=== PATIENT | male | born 1965 | race Caucasian/White ===

== ENCOUNTER 2021-09-01 10:27 | Emergency (ER) | payer OTHER ==
[2021-09-01 10:47] VITALS: TEMP 98.1; BMI 30.7
[2021-09-01] MEDS ORDERED: morphine CARPU-JECT 4 MG/1 ML DISP.SYRIN IVPUSH ONE ×2 (11:04→13:27)
[2021-09-01] MEDS ORDERED: morphine SULFATE 4 MG/ML VIAL ONE ×2 (11:09→13:38)
[2021-09-01] MEDS ORDERED: SODIUM CHLORIDE 500 ML IV STA (11:11)
[2021-09-01 11:14] LABS: INR 0.94 (0.83-1.09); PROTHROMBIN TIME (PATIENT) 11.4 SEC (9.7-13.0)
[2021-09-01 11:17] LABS: ACTIVATED PTT 31.2 SECONDS (25.2-36.5)
[2021-09-01 11:19] LABS: BASO % 0.5 % (0-2.0); EOS % 2.6 % (0-4.5); HEMATOCRIT 42.9 % (35.4-49); HEMOGLOBIN 14.2 GM/dL (11.7-16.9); LYMPH % 30.9 % (8-40); MCHC 33.1 g/dl (32.0-35.9); MEAN CELL VOLUME 84.5 fl (80-96); MEAN PLT VOLUME 8.4 fl (7.5-11.1); MONO % 10.4 % (3.8-10.2); NEUT % 55.6 % (42.8-82.8); PLATELET COUNT 272 10^3/uL (134-434); RBC 5.07 M/mm3 (4.00-5.60); RDW 14.9 % (11.9-15.9); WHITE BLOOD COUNT 7.9 K/mm3 (4.0-10.0)
[2021-09-01 11:26] LABS: CHLORIDE 104 mmol/L (98-107); SODIUM 135 mmol/L (136-145)
[2021-09-01 11:28] LABS: CALCIUM 8.8 mg/dL (8.5-10.1)
[2021-09-01 11:29] LABS: ALBUMIN 3.5 g/dl (3.4-5.0); BLOOD UREA NITROGEN 10.4 mg/dL (7-18); CO2 29 mmol/L (21-32)
[2021-09-01 11:32] LABS: GLUCOSE,RANDOM 86 mg/dL (74-106); SGOT/AST 69 U/L (15-37)
[2021-09-01 11:33] LABS: BILIRUBIN,TOTAL 0.5 mg/dL (0.2-1)
[2021-09-01 11:34] LABS: TOT PROT 7.6 g/dl (6.4-8.2)
[2021-09-01 11:35] LABS: ALK PHOS 191 U/L (45-117)
[2021-09-01 11:36] LABS: EPI CELLS 2 /uL (0-25.1); HYALINE CASTS 1 /uL (0-3.1); URINE APPEARANCE CLEAR; URINE BACTERIA 7 /uL (0-1359); URINE BILIRUBIN NEGATIVE (NEGATIVE); URINE COLOR YELLOW; URINE GLUCOSE (UA) NEGATIVE (NEGATIVE); URINE KETONE NEGATIVE (NEGATIVE); URINE LEUK ESTERASE TRACE (NEGATIVE); URINE NITRITE NEGATIVE (NEGATIVE); URINE PROTEIN NEGATIVE (NEGATIVE); URINE RBC 6 /uL (0-23.9); URINE WBC 2 /uL (0-25.8)
[2021-09-01 12:17] LABS: ANION GAP 2 MMOL/L (8-16); SGPT/ALT 25 U/L (13-61)
[2021-09-01 14:14] LABS: CALCIUM 8.4 mg/dL (8.5-10.1)
[2021-09-01 14:15] LABS: ALBUMIN 3.5 g/dl (3.4-5.0)
[2021-09-01 14:18] LABS: CREATININE 0.9 mg/dL (0.55-1.3)
[2021-09-01 14:19] LABS: BILIRUBIN,TOTAL 0.5 mg/dL (0.2-1)
[2021-09-01 14:26] VITALS: BP 136/91; PULSE 81
== END 2021-09-01 16:12 | disposition home or self-care (01) ==
LOC: JER 10:27
PROC: 3E033NZ Introduction of Analgesics, Hypnotics, Sedatives into Peripheral Vein, Percutaneous Approach (ICD-10-PCS; principal; 2021-09-01)
PROC: 3E033NZ Introduction of Analgesics, Hypnotics, Sedatives into Peripheral Vein, Percutaneous Approach (ICD-10-PCS; 2021-09-01)
PROC: 3E0337Z Introduction of Electrolytic and Water Balance Substance into Peripheral Vein, Percutaneous Approach (ICD-10-PCS; 2021-09-01)
DX: R10.11 Right upper quadrant pain (principal)
CPT/HCPCS: 36415; 71045-TC-FY; 74177-TC; 76705-TC; 80053; 81003; 82550; 82553; 84484; 85025; 85610; 85730; 93005; 93010; 99285-25; C9803; Q9967; U0003; U0005

== ENCOUNTER 2022-04-18 19:49 | Observation (INO) | payer OTHER ==
[2022-04-18] MEDS ORDERED: methylPREDNISolone NA SUCC 125 MG/2 ML VIAL IVPB ONE (20:18)
[2022-04-18] MEDS ORDERED: ALBUTEROL SO4 2.5/IPRATROPIUM 0.5 INH SOL 3 ML VIAL.NEB. NEB ONE (20:26)
[2022-04-18] MEDS ORDERED: methylPREDNISolone NA SUCC 125 MG/2 ML VIAL ONE (20:27)
[2022-04-18] MEDS: ALBUTEROL SO4 2.5/IPRATROPIUM 0.5 INH SOL 3 ML VIAL.NEB. NEB SCH ×2 (20:33→20:44)
[2022-04-18 21:20] LABS: EOS % 2.6 % (0-4.5); HEMOGLOBIN 13.3 GM/dL (11.7-16.9); LYMPH % 29.4 % (8-40); MCH 29.8 pg (25.7-33.7); MCHC 34.1 g/dl (32.0-35.9); MEAN CELL VOLUME 87.5 fl (80-96); MEAN PLT VOLUME 8.9 fl (7.5-11.1); MONO % 8.9 % (3.8-10.2); NEUT % 58.1 % (42.8-82.8); PLATELET COUNT 253 10^3/uL (134-434); RBC 4.46 M/mm3 (4.00-5.60); RDW 14.8 % (11.9-15.9); VENOUS BASE EXCESS 0.6 mmol/L (-2-2); VENOUS O2 SATURATION 82.5 % (70-80); VENOUS PCO2 45.8 mmHg (38-52); VENOUS PH 7.376 (7.310-7.410); WHITE BLOOD COUNT 8.5 K/mm3 (4.0-10.0)
[2022-04-18 21:24] LABS: INR 0.91 (0.83-1.09); PROTHROMBIN TIME (PATIENT) 10.4 SEC (9.7-13.0)
[2022-04-18 21:27] LABS: ACTIVATED PTT 33.1 SECONDS (25.2-36.5)
[2022-04-18] MEDS ORDERED: MAG HYDROX/AL HYDROX/SIMETH -MYLANTA- ORAL SUSPENSION PO ONE (21:28)
[2022-04-18] MEDS ORDERED: ACETAMINOPHEN 1000 MG/100 ML BAG IVPB ONE (21:28)
[2022-04-18] MEDS ORDERED: FAMOTIDINE 20 MG/50 ML IVPB 20 MG/50 ML MG IVPB ONE ×2 (21:28→21:32)
[2022-04-18] MEDS ORDERED: ACETAMINOPHEN INJECTION 100 ML IVPB ONE (21:31)
[2022-04-18] MEDS ORDERED: MAG HYDROX/AL HYDROX/SIMETH 30 ML UNIT-DOSE CUP ONE (21:32)
[2022-04-18 21:44] LABS: CALCIUM 8.9 mg/dL (8.5-10.1)
[2022-04-18 21:45] LABS: ALBUMIN 3.8 g/dl (3.4-5.0); BLOOD UREA NITROGEN 16.9 mg/dL (7-18)
[2022-04-18 21:49] LABS: BILIRUBIN,TOTAL 0.2 mg/dL (0.2-1); TOT PROT 7.2 g/dl (6.4-8.2)
[2022-04-18 21:53] LABS: N-TERMINAL BNP 18.6 pg/ml (5-125)
[2022-04-18] MEDS ORDERED: CEFTRIAXONE 1,000 MG in DEXTROSE 5%-WATER - 50 ML IVPB ONE (21:54)
[2022-04-18] MEDS ORDERED: CEFTRIAXONE 1 GM/50 ML BAG ONE (22:08)
[2022-04-18] MEDS ORDERED: ALBUTEROL SO4 0.5 % INH SOLN 2.5 MG/0.5 ML VIAL.NEB. NEB ONE ×2 (23:20→23:36)
[2022-04-19] MEDS ORDERED: ZOLPIDEM TARTRATE 5 MG TABLET PO ONE (02:05)
[2022-04-19] MEDS ORDERED: ALBUTEROL SO4 HFA INHALER IH PRN (02:21)
[2022-04-19 02:57] VITALS: BMI 33.0
[2022-04-19] MEDS ORDERED: LORazepam 1 MG TABLET PO ONE ×2 (03:43→23:37)
[2022-04-19] MEDS: INSULIN SLIDING SCALE (NOVOLOG) 1 VIAL SQ SCH ×4 (06:55→21:54)
[2022-04-19] MEDS ORDERED: ALBUTEROL SO4 2.5/IPRATROPIUM 0.5 INH SOL 3 ML VIAL.NEB. NEB SCH (08:00)
[2022-04-19] MEDS: PANTOPRAZOLE 40 MG TABLET PO SCH (09:34)
[2022-04-19] MEDS: SENNOSIDES 8.6MG TABLET (FP) PO SCH ×2 (09:34→21:54)
[2022-04-19] MEDS: DOCUSATE SODIUM 100 MG CAPSULE (FP) PO SCH ×2 (09:34→21:54)
[2022-04-19] MEDS: POLYETHYLENE GLYCOL (HEALTHYLAX) 3350 17 GM PACKET PO SCH (09:34)
[2022-04-19] MEDS: ENOXAPARIN NA (PORCINE) 40 MG/0.4 ML DISP.SYRIN SQ SCH (09:35)
[2022-04-19] MEDS ORDERED: predniSONE 20 MG TABLET (UD) PO SCH (10:00)
[2022-04-19] MEDS ORDERED: ALPRAZolam 0.25 MG TABLET PO ONE (10:15)
[2022-04-19] MEDS: TIOTROPIUM BROMIDE 2.5 MCG (SPIRIVA) RESPIMAT INHALER IH SCH (11:30)
[2022-04-19] MEDS: BUDESONIDE/FORMETEROL FUMARATE 80/4.5 mcg INHALER IH SCH ×2 (12:56→21:56)
[2022-04-19] MEDS: LEVALBUTEROL HCL 0.63 MG/3 ML VIAL.NEB. IH SCH ×2 (15:27→21:30)
[2022-04-19] MEDS: methylPREDNISolone NA SUCC 40 MG/1 ML VIAL IVPUSH SCH (17:40)
[2022-04-20] MEDS: methylPREDNISolone NA SUCC 40 MG/1 ML VIAL IVPUSH SCH ×2 (02:21→10:10)
[2022-04-20] MEDS: INSULIN SLIDING SCALE (NOVOLOG) 1 VIAL SQ SCH ×4 (06:37→21:27)
[2022-04-20] MEDS ORDERED: INSULIN (NOVOLOG) ASPART 100 UNITS/ML 10ML VIAL ONE (06:45)
[2022-04-20] MEDS: LEVALBUTEROL HCL 0.63 MG/3 ML VIAL.NEB. IH SCH ×3 (08:50→21:07)
[2022-04-20] MEDS: POLYETHYLENE GLYCOL (HEALTHYLAX) 3350 17 GM PACKET PO SCH (10:09)
[2022-04-20] MEDS: ENOXAPARIN NA (PORCINE) 40 MG/0.4 ML DISP.SYRIN SQ SCH (10:09)
[2022-04-20] MEDS: PANTOPRAZOLE 40 MG TABLET PO SCH (10:09)
[2022-04-20] MEDS: SENNOSIDES 8.6MG TABLET (FP) PO SCH (10:09)
[2022-04-20] MEDS: DOCUSATE SODIUM 100 MG CAPSULE (FP) PO SCH (10:09)
[2022-04-20] MEDS: BUDESONIDE/FORMETEROL FUMARATE 80/4.5 mcg INHALER IH SCH ×2 (10:10→21:30)
[2022-04-20] MEDS: TIOTROPIUM BROMIDE 2.5 MCG (SPIRIVA) RESPIMAT INHALER IH SCH (10:10)
[2022-04-20] MEDS ORDERED: ZOLPIDEM TARTRATE 5 MG TABLET PO PRN (13:31)
[2022-04-20] MEDS ORDERED: LORazepam 1 MG TABLET PO ONE (14:45)
[2022-04-20] MEDS: LOSARTAN POTASSIUM 25 MG TABLET PO SCH (14:55)
[2022-04-20] MEDS ORDERED: MELATONIN 1 MG TABLET PO SCH (22:00)
[2022-04-20] MEDS ORDERED: ATORVASTATIN CA 40 MG TABLET (FP) PO SCH (22:00)
[2022-04-21] MEDS: INSULIN SLIDING SCALE (NOVOLOG) 1 VIAL SQ SCH ×2 (06:01→11:32)
[2022-04-21] MEDS: LEVALBUTEROL HCL 0.63 MG/3 ML VIAL.NEB. IH SCH (07:20)
[2022-04-21] MEDS: POLYETHYLENE GLYCOL (HEALTHYLAX) 3350 17 GM PACKET PO SCH (09:33)
[2022-04-21] MEDS: TIOTROPIUM BROMIDE 2.5 MCG (SPIRIVA) RESPIMAT INHALER IH SCH (09:33)
[2022-04-21] MEDS: LOSARTAN POTASSIUM 25 MG TABLET PO SCH (09:33)
[2022-04-21] MEDS: BUDESONIDE/FORMETEROL FUMARATE 80/4.5 mcg INHALER IH SCH (09:34)
[2022-04-21] MEDS: PANTOPRAZOLE 40 MG TABLET PO SCH (09:34)
[2022-04-21] MEDS: ENOXAPARIN NA (PORCINE) 40 MG/0.4 ML DISP.SYRIN SQ SCH (09:36)
[2022-04-21] MEDS ORDERED: methylPREDNISolone NA SUCC 40 MG/1 ML VIAL IVPUSH SCH (10:00)
[2022-04-21 12:18] VITALS: BP 145/81; PULSE 113; TEMP 98.4
[2022-04-21 13:05] LABS: BASO % 0.4 % (0-2.0); EOS % 0.3 % (0-4.5); HEMATOCRIT 38.3 % (35.4-49); HEMOGLOBIN 13.2 GM/dL (11.7-16.9); LYMPH % 19.4 % (8-40); MCHC 34.4 g/dl (32.0-35.9); MEAN CELL VOLUME 87.1 fl (80-96); MEAN PLT VOLUME 9.2 fl (7.5-11.1); MONO % 7.5 % (3.8-10.2); NEUT % 72.4 % (42.8-82.8); PLATELET COUNT 256 10^3/uL (134-434); RDW 14.9 % (11.9-15.9); WHITE BLOOD COUNT 9.5 K/mm3 (4.0-10.0)
[2022-04-21 13:36] LABS: ALBUMIN 3.8 g/dl (3.4-5.0); MAGNESIUM 2.3 mg/dL (1.8-2.4)
[2022-04-21 13:37] LABS: CALCIUM 9.1 mg/dL (8.5-10.1)
[2022-04-21 13:38] LABS: BLOOD UREA NITROGEN 26.6 mg/dL (7-18); CREATININE 0.9 mg/dL (0.55-1.3)
[2022-04-21 13:41] LABS: PHOSPHOROUS 4.2 mg/dL (2.5-4.9)
[2022-04-21 13:42] LABS: BILIRUBIN,TOTAL 0.4 mg/dL (0.2-1)
== END 2022-04-21 14:44 | disposition home or self-care (01) ==
LOC: JER 19:49 → JERBED 04-19 00:43 → UNDOADMOB 04-19 00:43 → INTOOBSV 04-19 00:43 → J8W 04-19 02:27 → JERBED 04-19 02:27 → J8W 04-19 10:19 → JERBED 04-19 10:19
PROVIDERS: ADMIT Hospitalist; ATTEND Internal Medicine
PROC: 3E03329 Introduction of Other Anti-infective into Peripheral Vein, Percutaneous Approach (ICD-10-PCS; principal; 2022-04-19)
PROC: 3E033GC Introduction of Other Therapeutic Substance into Peripheral Vein, Percutaneous Approach (ICD-10-PCS; 2022-04-19)
PROC: 3E013GC Introduction of Other Therapeutic Substance into Subcutaneous Tissue, Percutaneous Approach (ICD-10-PCS; 2022-04-19)
PROC: 3E033NZ Introduction of Analgesics, Hypnotics, Sedatives into Peripheral Vein, Percutaneous Approach (ICD-10-PCS; 2022-04-19)
PROC: 3E0F7SF Introduction of Other Gas into Respiratory Tract, Via Natural or Artificial Opening (ICD-10-PCS; 2022-04-19)
DX: J44.1 Chronic obstructive pulmonary disease with (acute) exacerbation (principal); R10.32 Left lower quadrant pain; R06.03 Acute respiratory distress; R00.0 Tachycardia, unspecified; I10 Essential (primary) hypertension; E11.9 Type 2 diabetes mellitus without complications; F10.21 Alcohol dependence, in remission; F41.9 Anxiety disorder, unspecified; Z87.891 Personal history of nicotine dependence; Z91.51 Personal history of suicidal behavior; Z86.73 Personal history of transient ischemic attack (TIA), and cerebral infarction without residual deficits; Z86.79 Personal history of other diseases of the circulatory system
CPT/HCPCS: 0241U-QW; 36415; 71045-TC-FY; 71250-TC; 74176-TC; 80053; 80061; 82803; 82962; 83036; 83690; 83735; 83880; 84100; 84484; 85025; 85610; 85730; 93005; 93010; 93306-TC; 94640; 96367; 96372; 96375; 96376; 99285-25; G0378

== ENCOUNTER 2022-05-20 08:55 | Inpatient (IN) | payer OTHER ==
[2022-05-20] MEDS ORDERED: ALBUTEROL SO4 2.5/IPRATROPIUM 0.5 INH SOL 3 ML VIAL.NEB. NEB ONE ×3 (09:36→15:35)
[2022-05-20] MEDS ORDERED: methylPREDNISolone NA SUCC 125 MG/2 ML VIAL IVPUSH ONE (09:40)
[2022-05-20] MEDS ORDERED: LACTATED RINGERS SOLUTION 1000 ML INFUS.BAG IV ONE (09:47)
[2022-05-20 09:49] LABS: VENOUS BASE EXCESS 0.5 mmol/L (-2-2); VENOUS O2 SATURATION 88.2 % (70-80); VENOUS PCO2 42.6 mmHg (38-52); VENOUS PH 7.396 (7.310-7.410)
[2022-05-20 09:54] LABS: BASO % 0.1 % (0-2.0); HEMATOCRIT 38.5 % (35.4-49); HEMOGLOBIN 12.8 GM/dL (11.7-16.9); LYMPH % 6.7 % (8-40); MCH 29.2 pg (25.7-33.7); MCHC 33.2 g/dl (32.0-35.9); MEAN CELL VOLUME 87.9 fl (80-96); MEAN PLT VOLUME 8.6 fl (7.5-11.1); MONO % 4.5 % (3.8-10.2); NEUT % 88.7 % (42.8-82.8); PLATELET COUNT 296 10^3/uL (134-434); RBC 4.38 M/mm3 (4.00-5.60); RDW 14.9 % (11.9-15.9); WHITE BLOOD COUNT 15.6 K/mm3 (4.0-10.0)
[2022-05-20 09:57] LABS: PH,URINE 5.5 (5.0-8.0); URINE APPEARANCE CLEAR; URINE BILIRUBIN NEGATIVE (NEGATIVE); URINE COLOR YELLOW; URINE GLUCOSE (UA) 3+ (NEGATIVE); URINE KETONE NEGATIVE (NEGATIVE); URINE LEUK ESTERASE NEGATIVE (NEGATIVE); URINE NITRITE NEGATIVE (NEGATIVE); URINE PROTEIN NEGATIVE (NEGATIVE); URINE UROBILINOGEN 0.2 mg/dL (0.2-1.0)
[2022-05-20 10:02] LABS: INR 0.9 (0.83-1.09); PROTHROMBIN TIME (PATIENT) 10.3 SEC (9.7-13.0)
[2022-05-20 10:04] LABS: ACTIVATED PTT 27.2 SECONDS (25.2-36.5)
[2022-05-20] MEDS ORDERED: AMOX TR/POT CLAV 875MG/125MG TABLETS (FP) PO ONE (10:05)
[2022-05-20] MEDS ORDERED: AZITHROMYCIN IVPB 500 MG in DEXTROSE 5%-WATER - 250 ML IVPB ONE (10:06)
[2022-05-20 10:21] LABS: CHLORIDE 100 mmol/L (98-107); SODIUM 138 mmol/L (136-145)
[2022-05-20 10:23] LABS: CALCIUM 9.9 mg/dL (8.5-10.1)
[2022-05-20 10:24] LABS: ALBUMIN 4.1 g/dl (3.4-5.0); ANION GAP 10 MMOL/L (8-16); BLOOD UREA NITROGEN 19.8 mg/dL (7-18); CO2 28 mmol/L (21-32); LIPASE 89 U/L (73-393); MAGNESIUM 2.2 mg/dL (1.8-2.4)
[2022-05-20] MEDS ORDERED: ACETAMINOPHEN 1000 MG/100 ML BAG IVPB ONE (10:24)
[2022-05-20 10:27] LABS: CREATININE 1.3 mg/dL (0.55-1.3); SGOT/AST 13 U/L (15-37); SGPT/ALT 43 U/L (13-61)
[2022-05-20 10:28] LABS: BILIRUBIN,TOTAL 0.2 mg/dL (0.2-1)
[2022-05-20 10:29] LABS: TOT PROT 7.2 g/dl (6.4-8.2)
[2022-05-20 10:30] LABS: ALK PHOS 168 U/L (45-117)
[2022-05-20] MEDS ORDERED: AMOX TR/POT CLAV 875MG/125MG TABLETS (FP) ONE (10:33)
[2022-05-20] MEDS ORDERED: AZITHROMYCIN IVPB 500 MG/250 ML BAG IVPB ONE (10:33)
[2022-05-20] MEDS ORDERED: ACETAMINOPHEN INJECTION 100 ML IVPB ONE (10:33)
[2022-05-20 10:38] LABS: GLUCOSE,RANDOM 457 mg/dL (74-106)
[2022-05-20] MEDS ORDERED: INSULIN REGULAR HUMAN 100 UNITS/ML *VIAL SQ ONE ×2 (10:51→13:55)
[2022-05-20 13:33] LABS: CALCIUM 9.3 mg/dL (8.5-10.1)
[2022-05-20 13:34] LABS: BLOOD UREA NITROGEN 20.2 mg/dL (7-18)
[2022-05-20 13:37] LABS: CREATININE 1.2 mg/dL (0.55-1.3)
[2022-05-20] MEDS ORDERED: ACETAMINOPHEN 325 MG TABLET (FP) PO PRN ×2 (14:39→18:25)
[2022-05-20] MEDS ORDERED: LIDOCAINE 5% TOPICAL PATCH ONE (15:35)
[2022-05-20] MEDS: LIDOCAINE 5% TOPICAL PATCH TP SCH (15:44)
[2022-05-20] MEDS: SODIUM CHLORIDE 1,000 ML IV SCH (15:45)
[2022-05-20] MEDS: ALBUTEROL SO4 2.5/IPRATROPIUM 0.5 INH SOL 3 ML VIAL.NEB. NEB SCH ×2 (16:14→22:12)
[2022-05-20] MEDS: INSULIN SLIDING SCALE (NOVOLOG) 1 VIAL SQ SCH ×2 (16:15→21:15)
[2022-05-20] MEDS ORDERED: ACETAMINOPHEN 500 MG TABLET (FP) PO PRN (18:33)
[2022-05-20] MEDS ORDERED: INSULIN (NOVOLOG) ASPART 100 UNITS/ML 10ML VIAL ONE (21:10)
[2022-05-20] MEDS: INSULIN (LEVEMIR) 100 UNITS/ML UNITS SQ SCH (21:15)
[2022-05-20] MEDS: HEPARIN NA (PORCINE) 5,000 UNITS/ML 1ML VIAL SQ SCH (21:16)
[2022-05-20] MEDS: predniSONE 20 MG TABLET (UD) PO SCH (21:17)
[2022-05-20] MEDS: LIDOCAINE PATCH REMOVAL MC SCH (21:17)
[2022-05-20] MEDS: ATORVASTATIN CA 40 MG TABLET (FP) PO SCH (21:17)
[2022-05-20] MEDS ORDERED: BUDESONIDE/FORMETEROL FUMARATE 160/4.5 mcg INHALER IH SCH (22:00)
[2022-05-21 00:22] VITALS: BMI 35.1
[2022-05-21] MEDS: INSULIN SLIDING SCALE (NOVOLOG) 1 VIAL SQ SCH ×4 (06:15→22:07)
[2022-05-21] MEDS: INSULIN (LEVEMIR) 100 UNITS/ML UNITS SQ SCH ×2 (06:16→22:06)
[2022-05-21] MEDS: HEPARIN NA (PORCINE) 5,000 UNITS/ML 1ML VIAL SQ SCH ×3 (06:16→22:06)
[2022-05-21] MEDS: predniSONE 20 MG TABLET (UD) PO SCH (06:18)
[2022-05-21] MEDS: ALBUTEROL SO4 HFA INHALER IH PRN (06:40)
[2022-05-21] MEDS: ALBUTEROL SO4 2.5/IPRATROPIUM 0.5 INH SOL 3 ML VIAL.NEB. NEB SCH ×4 (07:59→20:21)
[2022-05-21 09:34] LABS: HEMATOCRIT 38.4 % (35.4-49); HEMOGLOBIN 12.7 GM/dL (11.7-16.9); MCH 29.1 pg (25.7-33.7); MCHC 33.2 g/dl (32.0-35.9); MEAN CELL VOLUME 87.4 fl (80-96); MEAN PLT VOLUME 9.1 fl (7.5-11.1); PLATELET COUNT 291 10^3/uL (134-434); RBC 4.39 M/mm3 (4.00-5.60); RDW 14.5 % (11.9-15.9); WHITE BLOOD COUNT 13.1 K/mm3 (4.0-10.0)
[2022-05-21 09:56] LABS: ALBUMIN 3.7 g/dl (3.4-5.0); CALCIUM 9.2 mg/dL (8.5-10.1)
[2022-05-21 09:57] LABS: BLOOD UREA NITROGEN 24.7 mg/dL (7-18); MAGNESIUM 2.3 mg/dL (1.8-2.4)
[2022-05-21 10:00] LABS: CREATININE 0.9 mg/dL (0.55-1.3)
[2022-05-21] MEDS ORDERED: TIOTROPIUM BROMIDE 2.5 MCG (SPIRIVA) RESPIMAT INHALER IH SCH (10:00)
[2022-05-21 10:01] LABS: BILIRUBIN,TOTAL 0.4 mg/dL (0.2-1); TOT PROT 6.6 g/dl (6.4-8.2)
[2022-05-21] MEDS ORDERED: cefTRIAXone SODIUM 1 GM VIAL ONE (10:28)
[2022-05-21] MEDS ORDERED: DEXTROSE 5%-WATER - 50 ML IVPB ONE (10:28)
[2022-05-21] MEDS: LIDOCAINE 5% TOPICAL PATCH TP SCH (10:36)
[2022-05-21] MEDS: NICOTINE 14 MG/24 HOURS TOPICAL PATCH TD SCH (10:37)
[2022-05-21] MEDS: ASPIRIN COATED 81 MG TABLET.EC PO SCH (10:37)
[2022-05-21] MEDS: PANTOPRAZOLE 40 MG TABLET PO SCH (10:37)
[2022-05-21] MEDS: CEFTRIAXONE 1 GM in DEXTROSE 5%-WATER - 50 ML IVPB SCH (10:37)
[2022-05-21] MEDS: BUDESONIDE/FORMETEROL FUMARATE 80/4.5 mcg INHALER IH SCH ×2 (10:38→22:10)
[2022-05-21] MEDS: methylPREDNISolone NA SUCC 40 MG/1 ML VIAL IVPUSH SCH ×2 (10:38→17:13)
[2022-05-21] MEDS: LOSARTAN POTASSIUM 25 MG TABLET PO SCH (10:38)
[2022-05-21] MEDS ORDERED: ACETAMINOPHEN 1000 MG/100 ML BAG IVPB PRN ×2 (10:48→16:18)
[2022-05-21] MEDS ORDERED: ACETAMINOPHEN 500 MG TABLET (FP) PO PRN (10:49)
[2022-05-21] MEDS: AZITHROMYCIN IVPB 250 MG in DEXTROSE 5%-WATER - 250 ML IVPB SCH (10:59)
[2022-05-21] MEDS: SODIUM CHLORIDE 1,000 ML IV SCH (16:35)
[2022-05-21] MEDS ORDERED: traMADol HCL 50 MG TABLET PO ONE (21:53)
[2022-05-21] MEDS: ATORVASTATIN CA 40 MG TABLET (FP) PO SCH (22:07)
[2022-05-21] MEDS: LIDOCAINE PATCH REMOVAL MC SCH (22:07)
[2022-05-22] MEDS: methylPREDNISolone NA SUCC 40 MG/1 ML VIAL IVPUSH SCH ×3 (02:13→17:00)
[2022-05-22] MEDS: ALBUTEROL SO4 HFA INHALER IH PRN ×2 (06:15→19:50)
[2022-05-22] MEDS: INSULIN (LEVEMIR) 100 UNITS/ML UNITS SQ SCH ×2 (06:19→22:11)
[2022-05-22] MEDS: INSULIN SLIDING SCALE (NOVOLOG) 1 VIAL SQ SCH ×4 (06:19→22:09)
[2022-05-22] MEDS: HEPARIN NA (PORCINE) 5,000 UNITS/ML 1ML VIAL SQ SCH ×2 (06:19→13:26)
[2022-05-22] MEDS: ALBUTEROL SO4 2.5/IPRATROPIUM 0.5 INH SOL 3 ML VIAL.NEB. NEB SCH ×4 (07:45→20:19)
[2022-05-22 09:51] LABS: HEMATOCRIT 40.9 % (35.4-49); HEMOGLOBIN 13.6 GM/dL (11.7-16.9); MCH 29.1 pg (25.7-33.7); MCHC 33.3 g/dl (32.0-35.9); MEAN CELL VOLUME 87.6 fl (80-96); MEAN PLT VOLUME 9.1 fl (7.5-11.1); PLATELET COUNT 296 10^3/uL (134-434); RBC 4.67 M/mm3 (4.00-5.60); RDW 14.3 % (11.9-15.9); WHITE BLOOD COUNT 13.9 K/mm3 (4.0-10.0)
[2022-05-22] MEDS ORDERED: cefTRIAXone SODIUM 1 GM VIAL ONE (09:56)
[2022-05-22] MEDS ORDERED: DEXTROSE 5%-WATER - 50 ML IVPB ONE (09:56)
[2022-05-22] MEDS: CEFTRIAXONE 1 GM in DEXTROSE 5%-WATER - 50 ML IVPB SCH (10:12)
[2022-05-22] MEDS: PANTOPRAZOLE 40 MG TABLET PO SCH (10:12)
[2022-05-22] MEDS: ASPIRIN COATED 81 MG TABLET.EC PO SCH (10:12)
[2022-05-22] MEDS: NICOTINE 14 MG/24 HOURS TOPICAL PATCH TD SCH (10:12)
[2022-05-22] MEDS: LOSARTAN POTASSIUM 25 MG TABLET PO SCH (10:12)
[2022-05-22] MEDS: LIDOCAINE 5% TOPICAL PATCH TP SCH (10:12)
[2022-05-22 10:17] LABS: CALCIUM 9.1 mg/dL (8.5-10.1)
[2022-05-22 10:18] LABS: ALBUMIN 3.8 g/dl (3.4-5.0); BLOOD UREA NITROGEN 24.2 mg/dL (7-18); MAGNESIUM 2.4 mg/dL (1.8-2.4)
[2022-05-22] MEDS: BUDESONIDE/FORMETEROL FUMARATE 80/4.5 mcg INHALER IH SCH ×2 (10:19→22:09)
[2022-05-22 10:21] LABS: CREATININE 1.1 mg/dL (0.55-1.3)
[2022-05-22 10:22] LABS: BILIRUBIN,TOTAL 0.7 mg/dL (0.2-1)
[2022-05-22 10:23] LABS: TOT PROT 6.9 g/dl (6.4-8.2)
[2022-05-22] MEDS ORDERED: ACETAMINOPHEN 1000 MG/100 ML BAG IVPB PRN (10:26)
[2022-05-22] MEDS: traMADol HCL 50 MG TABLET PO PRN ×3 (10:35→22:54)
[2022-05-22] MEDS: AZITHROMYCIN IVPB 250 MG in DEXTROSE 5%-WATER - 250 ML IVPB SCH (11:02)
[2022-05-22 11:29] LABS: ANISOCYTOSIS 1+; MACROCYTOSIS 0
[2022-05-22] MEDS: SODIUM CHLORIDE 1,000 ML IV SCH (16:58)
[2022-05-22] MEDS ORDERED: ENOXAPARIN NA (PORCINE) 40 MG/0.4 ML DISP.SYRIN SQ SCH (22:00)
[2022-05-22] MEDS: LIDOCAINE PATCH REMOVAL MC SCH (22:11)
[2022-05-22] MEDS: ATORVASTATIN CA 40 MG TABLET (FP) PO SCH (22:11)
[2022-05-23] MEDS: methylPREDNISolone NA SUCC 40 MG/1 ML VIAL IVPUSH SCH ×5 (02:15→21:45)
[2022-05-23] MEDS: traMADol HCL 50 MG TABLET PO PRN (06:15)
[2022-05-23] MEDS: INSULIN SLIDING SCALE (NOVOLOG) 1 VIAL SQ SCH ×4 (06:15→21:59)
[2022-05-23] MEDS: INSULIN (LEVEMIR) 100 UNITS/ML UNITS SQ SCH ×2 (06:16→21:44)
[2022-05-23] MEDS: ALBUTEROL SO4 2.5/IPRATROPIUM 0.5 INH SOL 3 ML VIAL.NEB. NEB SCH ×4 (07:26→20:30)
[2022-05-23] MEDS ORDERED: cefTRIAXone SODIUM 1 GM VIAL ONE (09:41)
[2022-05-23] MEDS ORDERED: DEXTROSE 5%-WATER - 50 ML IVPB ONE (09:41)
[2022-05-23] MEDS: ENOXAPARIN NA (PORCINE) 40 MG/0.4 ML DISP.SYRIN SQ SCH (09:46)
[2022-05-23] MEDS: LOSARTAN POTASSIUM 25 MG TABLET PO SCH (09:46)
[2022-05-23] MEDS: NICOTINE 14 MG/24 HOURS TOPICAL PATCH TD SCH (09:46)
[2022-05-23] MEDS: CEFTRIAXONE 1 GM in DEXTROSE 5%-WATER - 50 ML IVPB SCH (09:46)
[2022-05-23] MEDS: PANTOPRAZOLE 40 MG TABLET PO SCH (09:46)
[2022-05-23] MEDS: ASPIRIN COATED 81 MG TABLET.EC PO SCH (09:46)
[2022-05-23 09:51] LABS: HEMATOCRIT 42.5 % (35.4-49); HEMOGLOBIN 14.5 GM/dL (11.7-16.9); MCH 29.4 pg (25.7-33.7); MCHC 34.1 g/dl (32.0-35.9); MEAN CELL VOLUME 86.1 fl (80-96); MEAN PLT VOLUME 8.9 fl (7.5-11.1); PLATELET COUNT 315 10^3/uL (134-434); RBC 4.93 M/mm3 (4.00-5.60); RDW 14.2 % (11.9-15.9); WHITE BLOOD COUNT 14.4 K/mm3 (4.0-10.0)
[2022-05-23] MEDS: LIDOCAINE 5% TOPICAL PATCH TP SCH (09:52)
[2022-05-23] MEDS: BUDESONIDE/FORMETEROL FUMARATE 80/4.5 mcg INHALER IH SCH ×2 (09:53→21:45)
[2022-05-23 10:34] LABS: BLOOD UREA NITROGEN 27.1 mg/dL (7-18); MAGNESIUM 2.3 mg/dL (1.8-2.4)
[2022-05-23 10:37] LABS: CALCIUM 9.6 mg/dL (8.5-10.1)
[2022-05-23 10:38] LABS: BILIRUBIN,TOTAL 0.5 mg/dL (0.2-1); TOT PROT 7.5 g/dl (6.4-8.2)
[2022-05-23] MEDS: AZITHROMYCIN IVPB 250 MG in DEXTROSE 5%-WATER - 250 ML IVPB SCH (11:11)
[2022-05-23] MEDS: oxyCODONE HCL 5 MG TABLET PO PRN ×3 (11:17→21:44)
[2022-05-23 11:19] LABS: ANISOCYTOSIS 0; HELMET CELLS 0; HOWELL-JOLLY BODIES 0; MACROCYTOSIS 0; OVALOCYTE 0; ROULEAU 0; SICKELED CELLS 0; TARGET CELLS 0; TEAR DROP CELLS 0; TOXIC GRANULATION 0
[2022-05-23] MEDS ORDERED: INSULIN (NOVOLOG) ASPART 100 UNITS/ML 10ML VIAL ONE (16:23)
[2022-05-23] MEDS: DOCUSATE SODIUM 100 MG CAPSULE (FP) PO SCH (21:43)
[2022-05-23] MEDS: ATORVASTATIN CA 40 MG TABLET (FP) PO SCH (21:44)
[2022-05-23] MEDS: LIDOCAINE PATCH REMOVAL MC SCH (21:45)
[2022-05-23] MEDS: CYCLOBENZAPRINE HCL 10 MG TABLET (FP) PO PRN (21:58)
[2022-05-23] MEDS: MELATONIN 1 MG TABLET PO PRN (21:58)
[2022-05-24] MEDS: methylPREDNISolone NA SUCC 40 MG/1 ML VIAL IVPUSH SCH ×4 (03:58→21:51)
[2022-05-24] MEDS: INSULIN (LEVEMIR) 100 UNITS/ML UNITS SQ SCH ×2 (06:11→21:48)
[2022-05-24] MEDS: CYCLOBENZAPRINE HCL 10 MG TABLET (FP) PO PRN (06:11)
[2022-05-24] MEDS: oxyCODONE HCL 5 MG TABLET PO PRN ×4 (06:12→21:55)
[2022-05-24] MEDS: INSULIN SLIDING SCALE (NOVOLOG) 1 VIAL SQ SCH ×4 (06:16→21:50)
[2022-05-24] MEDS: ALBUTEROL SO4 2.5/IPRATROPIUM 0.5 INH SOL 3 ML VIAL.NEB. NEB SCH ×2 (08:01→11:20)
[2022-05-24] MEDS ORDERED: cefTRIAXone SODIUM 1 GM VIAL ONE (09:06)
[2022-05-24] MEDS ORDERED: DEXTROSE 5%-WATER - 50 ML IVPB ONE (09:07)
[2022-05-24] MEDS: NICOTINE 14 MG/24 HOURS TOPICAL PATCH TD SCH (09:15)
[2022-05-24] MEDS: ASPIRIN COATED 81 MG TABLET.EC PO SCH (09:15)
[2022-05-24] MEDS: PANTOPRAZOLE 40 MG TABLET PO SCH (09:15)
[2022-05-24] MEDS: LOSARTAN POTASSIUM 25 MG TABLET PO SCH (09:15)
[2022-05-24] MEDS: CEFTRIAXONE 1 GM in DEXTROSE 5%-WATER - 50 ML IVPB SCH (09:15)
[2022-05-24] MEDS: ENOXAPARIN NA (PORCINE) 40 MG/0.4 ML DISP.SYRIN SQ SCH (09:15)
[2022-05-24] MEDS: LIDOCAINE 5% TOPICAL PATCH TP SCH (09:16)
[2022-05-24] MEDS: BUDESONIDE/FORMETEROL FUMARATE 80/4.5 mcg INHALER IH SCH ×2 (09:17→21:51)
[2022-05-24 09:20] LABS: HEMATOCRIT 42.1 % (35.4-49); MCH 28.8 pg (25.7-33.7); MCHC 33.2 g/dl (32.0-35.9); MEAN CELL VOLUME 86.7 fl (80-96); MEAN PLT VOLUME 9.3 fl (7.5-11.1); PLATELET COUNT 267 10^3/uL (134-434); RBC 4.86 M/mm3 (4.00-5.60); RDW 14.2 % (11.9-15.9); WHITE BLOOD COUNT 16.6 K/mm3 (4.0-10.0)
[2022-05-24 09:43] LABS: ALBUMIN 3.6 g/dl (3.4-5.0); BLOOD UREA NITROGEN 32.2 mg/dL (7-18); MAGNESIUM 2.5 mg/dL (1.8-2.4)
[2022-05-24 09:46] LABS: CREATININE 0.9 mg/dL (0.55-1.3)
[2022-05-24 09:48] LABS: BILIRUBIN,TOTAL 1.1 mg/dL (0.2-1); TOT PROT 6.7 g/dl (6.4-8.2)
[2022-05-24 10:39] LABS: ANISOCYTOSIS 0; MACROCYTOSIS 0
[2022-05-24] MEDS: AZITHROMYCIN IVPB 250 MG in DEXTROSE 5%-WATER - 250 ML IVPB SCH (10:53)
[2022-05-24] MEDS: DOCUSATE SODIUM 100 MG CAPSULE (FP) PO SCH (21:48)
[2022-05-24] MEDS: ATORVASTATIN CA 40 MG TABLET (FP) PO SCH (21:48)
[2022-05-24] MEDS ORDERED: INSULIN (NOVOLOG) ASPART 100 UNITS/ML 10ML VIAL ONE (21:50)
[2022-05-24] MEDS: LIDOCAINE PATCH REMOVAL MC SCH (21:53)
[2022-05-24] MEDS: MELATONIN 1 MG TABLET PO PRN (22:27)
[2022-05-25] MEDS: methylPREDNISolone NA SUCC 40 MG/1 ML VIAL IVPUSH SCH ×4 (05:38→21:34)
[2022-05-25] MEDS: INSULIN (LEVEMIR) 100 UNITS/ML UNITS SQ SCH ×2 (06:11→21:33)
[2022-05-25] MEDS: INSULIN SLIDING SCALE (NOVOLOG) 1 VIAL SQ SCH ×5 (06:11→21:33)
[2022-05-25] MEDS: oxyCODONE HCL 5 MG TABLET PO PRN ×3 (06:17→17:50)
[2022-05-25] MEDS ORDERED: cefTRIAXone SODIUM 1 GM VIAL ONE (09:16)
[2022-05-25] MEDS ORDERED: DEXTROSE 5%-WATER - 50 ML IVPB ONE (09:16)
[2022-05-25] MEDS: traMADol HCL 50 MG TABLET PO PRN (09:18)
[2022-05-25] MEDS: ASPIRIN COATED 81 MG TABLET.EC PO SCH (09:19)
[2022-05-25] MEDS: LIDOCAINE 5% TOPICAL PATCH TP SCH (09:19)
[2022-05-25] MEDS: ENOXAPARIN NA (PORCINE) 40 MG/0.4 ML DISP.SYRIN SQ SCH (09:19)
[2022-05-25] MEDS: LOSARTAN POTASSIUM 25 MG TABLET PO SCH (09:19)
[2022-05-25] MEDS: PANTOPRAZOLE 40 MG TABLET PO SCH (09:19)
[2022-05-25] MEDS: CEFTRIAXONE 1 GM in DEXTROSE 5%-WATER - 50 ML IVPB SCH (09:20)
[2022-05-25] MEDS: NICOTINE 14 MG/24 HOURS TOPICAL PATCH TD SCH (09:20)
[2022-05-25] MEDS: BUDESONIDE/FORMETEROL FUMARATE 80/4.5 mcg INHALER IH SCH ×2 (09:21→21:35)
[2022-05-25] MEDS: AZITHROMYCIN IVPB 250 MG in DEXTROSE 5%-WATER - 250 ML IVPB SCH (10:17)
[2022-05-25] MEDS: LORazepam 1 MG TABLET PO PRN ×3 (11:31→21:46)
[2022-05-25] MEDS: ALBUTEROL SO4 0.083% IH SOL 2.5 MG/3 ML VIAL.NEB. NEB PRN (16:48)
[2022-05-25] MEDS ORDERED: INSULIN (NOVOLOG) ASPART 100 UNITS/ML 10ML VIAL ONE (21:12)
[2022-05-25] MEDS: ATORVASTATIN CA 40 MG TABLET (FP) PO SCH (21:33)
[2022-05-25] MEDS: DOCUSATE SODIUM 100 MG CAPSULE (FP) PO SCH (21:33)
[2022-05-25] MEDS: MELATONIN 1 MG TABLET PO PRN (21:38)
[2022-05-25] MEDS: CYCLOBENZAPRINE HCL 10 MG TABLET (FP) PO PRN ×2 (21:39→21:46)
[2022-05-25] MEDS: LIDOCAINE PATCH REMOVAL MC SCH (21:52)
[2022-05-26] MEDS ORDERED: oxyCODONE HCL 5 MG TABLET PO ONE (00:45)
[2022-05-26] MEDS: methylPREDNISolone NA SUCC 40 MG/1 ML VIAL IVPUSH SCH ×2 (04:30→09:31)
[2022-05-26] MEDS: CYCLOBENZAPRINE HCL 10 MG TABLET (FP) PO PRN ×2 (06:26→21:05)
[2022-05-26] MEDS: traMADol HCL 50 MG TABLET PO PRN ×2 (06:27→16:06)
[2022-05-26] MEDS: INSULIN (LEVEMIR) 100 UNITS/ML UNITS SQ SCH ×2 (06:29→21:06)
[2022-05-26] MEDS: INSULIN SLIDING SCALE (NOVOLOG) 1 VIAL SQ SCH ×4 (06:29→21:06)
[2022-05-26] MEDS: NICOTINE 14 MG/24 HOURS TOPICAL PATCH TD SCH (09:11)
[2022-05-26] MEDS: ENOXAPARIN NA (PORCINE) 40 MG/0.4 ML DISP.SYRIN SQ SCH (09:11)
[2022-05-26] MEDS: PANTOPRAZOLE 40 MG TABLET PO SCH (09:12)
[2022-05-26] MEDS: LOSARTAN POTASSIUM 25 MG TABLET PO SCH (09:12)
[2022-05-26] MEDS: LIDOCAINE 5% TOPICAL PATCH TP SCH (09:12)
[2022-05-26] MEDS: ASPIRIN COATED 81 MG TABLET.EC PO SCH (09:12)
[2022-05-26] MEDS: BUDESONIDE/FORMETEROL FUMARATE 80/4.5 mcg INHALER IH SCH ×2 (09:17→21:07)
[2022-05-26] MEDS: LORazepam 1 MG TABLET PO PRN ×2 (09:39→21:05)
[2022-05-26] MEDS ORDERED: INSULIN (NOVOLOG) ASPART 100 UNITS/ML 10ML VIAL ONE ×2 (11:00→20:50)
[2022-05-26 11:55] LABS: HEMATOCRIT 40.4 % (35.4-49); HEMOGLOBIN 13.6 GM/dL (11.7-16.9); MCH 29.1 pg (25.7-33.7); MCHC 33.5 g/dl (32.0-35.9); MEAN CELL VOLUME 86.7 fl (80-96); MEAN PLT VOLUME 9.1 fl (7.5-11.1); PLATELET COUNT 259 10^3/uL (134-434); RBC 4.66 M/mm3 (4.00-5.60); RDW 14.5 % (11.9-15.9)
[2022-05-26 12:16] LABS: CALCIUM 8.7 mg/dL (8.5-10.1)
[2022-05-26 12:17] LABS: ALBUMIN 3.2 g/dl (3.4-5.0); BLOOD UREA NITROGEN 29.4 mg/dL (7-18); MAGNESIUM 2.4 mg/dL (1.8-2.4)
[2022-05-26 12:20] LABS: CREATININE 0.9 mg/dL (0.55-1.3)
[2022-05-26 12:24] LABS: BILIRUBIN,TOTAL 0.5 mg/dL (0.2-1)
[2022-05-26 13:10] LABS: ANISOCYTOSIS 0; MACROCYTOSIS 0
[2022-05-26] MEDS: ALBUTEROL SO4 0.083% IH SOL 2.5 MG/3 ML VIAL.NEB. NEB PRN ×2 (14:23→19:45)
[2022-05-26] MEDS: MELATONIN 1 MG TABLET PO PRN (21:04)
[2022-05-26] MEDS: DOCUSATE SODIUM 100 MG CAPSULE (FP) PO SCH (21:04)
[2022-05-26] MEDS: ATORVASTATIN CA 40 MG TABLET (FP) PO SCH (21:05)
[2022-05-26] MEDS ORDERED: methylPREDNISolone NA SUCC 40 MG/1 ML VIAL IVPUSH SCH (22:00)
[2022-05-26] MEDS: LIDOCAINE PATCH REMOVAL MC SCH (23:08)
[2022-05-27] MEDS: traMADol HCL 50 MG TABLET PO PRN (01:24)
[2022-05-27 05:18] VITALS: TEMP 98.1
[2022-05-27] MEDS: LORazepam 1 MG TABLET PO PRN (06:10)
[2022-05-27] MEDS: CYCLOBENZAPRINE HCL 10 MG TABLET (FP) PO PRN (06:10)
[2022-05-27] MEDS: INSULIN (LEVEMIR) 100 UNITS/ML UNITS SQ SCH (06:11)
[2022-05-27] MEDS: INSULIN SLIDING SCALE (NOVOLOG) 1 VIAL SQ SCH (06:11)
[2022-05-27] MEDS ORDERED: CYCLOBENZAPRINE HCL 5 MG TABLET PO PRN (06:16)
[2022-05-27] MEDS: ALBUTEROL SO4 0.083% IH SOL 2.5 MG/3 ML VIAL.NEB. NEB PRN (07:45)
[2022-05-27 10:31] VITALS: BP 122/86; PULSE 89
== END 2022-05-27 10:09 | disposition home or self-care (01) | DRG 192 ==
LOC: JER 08:55 → INTOOBSV 14:25 → JERBED 14:25 → UNDOADMOB 14:25 → JERBED 14:26 → J6S 20:03 → OBSVTOIN 05-22 13:15
PROVIDERS: ADMIT Internal Medicine; ATTEND Nurse Practitioner Family
DX: J44.1 Chronic obstructive pulmonary disease with (acute) exacerbation (principal); F17.210 Nicotine dependence, cigarettes, uncomplicated; I10 Essential (primary) hypertension; M94.0 Chondrocostal junction syndrome [Tietze]; E07.9 Disorder of thyroid, unspecified; E66.9 Obesity, unspecified; Z68.35 Body mass index [BMI] 35.0-35.9, adult; K21.9 Gastro-esophageal reflux disease without esophagitis; E11.65 Type 2 diabetes mellitus with hyperglycemia; E86.0 Dehydration
CPT/HCPCS: 36415; 70450-TC; 71045-TC-FY; 80048; 80053; 81003; 82010; 82803; 82962; 83036; 83690; 83735; 84484; 85025; 85027; 85379; 85610; 85730; 93005; 93010; 94010; 94640; 94761; 97116-GP; 97161-GP; 99285-25; C9803-CS; G0378; J1644; U0003; U0005

== ENCOUNTER 2022-09-04 08:43 | Inpatient (IN) | payer OTHER ==
[2022-09-04 08:51] VITALS: BMI 32.2
[2022-09-04] MEDS ORDERED: DEXAMETHASONE SOD PHOSPHATE 10 MG/1 ML VIAL IVPUSH ONE (09:29)
[2022-09-04] MEDS: ALBUTEROL SO4 2.5/IPRATROPIUM 0.5 INH SOL 3 ML VIAL.NEB. NEB SCH ×4 (09:45→10:47)
[2022-09-04 10:05] LABS: VENOUS O2 SATURATION 60.8 % (70-80); VENOUS PCO2 45.7 mmHg (38-52); VENOUS PH 7.383 (7.310-7.410)
[2022-09-04] MEDS ORDERED: DEXAMETHASONE SOD PHOSPHATE 10 MG/1 ML VIAL ONE (10:14)
[2022-09-04] MEDS ORDERED: ALBUTEROL SO4 2.5/IPRATROPIUM 0.5 INH SOL 3 ML VIAL.NEB. NEB ONE (10:14)
[2022-09-04 10:23] LABS: BASO % 1.3 % (0-2.0); EOS % 2.7 % (0-4.5); HEMATOCRIT 43.5 % (35.4-49); HEMOGLOBIN 14.1 GM/dL (11.7-16.9); LYMPH % 27.8 % (8-40); MCH 28.5 pg (25.7-33.7); MCHC 32.5 g/dl (32.0-35.9); MEAN CELL VOLUME 87.7 fl (80-96); MEAN PLT VOLUME 8.5 fl (7.5-11.1); MONO % 8.7 % (3.8-10.2); NEUT % 59.5 % (42.8-82.8); PLATELET COUNT 328 10^3/uL (134-434); RBC 4.96 M/mm3 (4.00-5.60); RDW 14.6 % (11.9-15.9); WHITE BLOOD COUNT 8.3 K/mm3 (4.0-10.0)
[2022-09-04 10:31] LABS: INR 0.96 (0.83-1.09)
[2022-09-04 10:37] LABS: CALCIUM 9.8 mg/dL (8.5-10.1)
[2022-09-04 10:38] LABS: ALBUMIN 3.9 g/dl (3.4-5.0); BLOOD UREA NITROGEN 14.1 mg/dL (7-18)
[2022-09-04 10:42] LABS: BILIRUBIN,TOTAL 0.4 mg/dL (0.2-1)
[2022-09-04] MEDS ORDERED: ASPIRIN 81 MG CHEWABLE TABLETS PO ONE (11:12)
[2022-09-04] MEDS ORDERED: ACETAMINOPHEN 325 MG TABLET (FP) PO ONE (11:12)
[2022-09-04] MEDS ORDERED: ASPIRIN 81 MG CHEWABLE TABLETS ONE (11:19)
[2022-09-04] MEDS ORDERED: ACETAMINOPHEN 325 MG TABLET (FP) ONE (11:20)
[2022-09-04 12:28] LABS: BLOOD UREA NITROGEN 14.1 mg/dL (7-18); CALCIUM 9.8 mg/dL (8.5-10.1)
[2022-09-04 12:36] LABS: LACTIC ACID 3.2 mmol/L (0.4-2.0)
[2022-09-04 13:37] VITALS: BP 124/65; PULSE 120; RESP 16; TEMP 98.4
[2022-09-04] MEDS ORDERED: SODIUM CHLORIDE 1,000 ML IV STA (14:11)
[2022-09-04] MEDS ORDERED: ALBUTEROL SO4 HFA INHALER IH PRN (15:00)
[2022-09-04] MEDS ORDERED: ACETAMINOPHEN 325 MG TABLET (FP) PO PRN (15:03)
[2022-09-04] MEDS ORDERED: ALBUTEROL SO4 2.5/IPRATROPIUM 0.5 INH SOL 3 ML VIAL.NEB. NEB PRN (15:08)
[2022-09-04] MEDS ORDERED: ENOXAPARIN NA (PORCINE) 40 MG/0.4 ML DISP.SYRIN SQ SCH (15:15)
[2022-09-04] MEDS ORDERED: AZITHROMYCIN IVPB 500 MG/250 ML BAG IVPB SCH (15:15)
[2022-09-04] MEDS ORDERED: INSULIN SLIDING SCALE (NOVOLOG) 1 VIAL SQ SCH (16:30)
[2022-09-04] MEDS ORDERED: methylPREDNISolone NA SUCC 125 MG/2 ML VIAL IVPB SCH (18:00)
[2022-09-04] MEDS ORDERED: INSULIN (LEVEMIR) 100 UNITS/ML UNITS SQ SCH (22:00)
[2022-09-04] MEDS ORDERED: BUDESONIDE/FORMETEROL FUMARATE 80/4.5 mcg INHALER IH SCH (22:00)
[2022-09-04] MEDS ORDERED: ATORVASTATIN CA 40 MG TABLET (FP) PO SCH (22:00)
[2022-09-05] MEDS ORDERED: ASPIRIN COATED 81 MG TABLET.EC PO SCH (10:00)
[2022-09-05] MEDS ORDERED: LOSARTAN POTASSIUM 25 MG TABLET PO SCH (10:00)
[2022-09-05] MEDS ORDERED: PANTOPRAZOLE 40 MG TABLET PO SCH (10:00)
== END 2022-09-04 15:45 | disposition home or self-care (01) | DRG 192 ==
LOC: JER 08:43 → JERBED 09:25 → OBSVTOIN 09:25
PROVIDERS: ADMIT Internal Medicine; ATTEND Internal Medicine
DX: J44.1 Chronic obstructive pulmonary disease with (acute) exacerbation (principal); E11.9 Type 2 diabetes mellitus without complications; I10 Essential (primary) hypertension; J44.9 Chronic obstructive pulmonary disease, unspecified; E78.5 Hyperlipidemia, unspecified; R06.00 Dyspnea, unspecified; F17.210 Nicotine dependence, cigarettes, uncomplicated; R07.9 Chest pain, unspecified; E66.9 Obesity, unspecified; Z68.32 Body mass index [BMI] 32.0-32.9, adult
CPT/HCPCS: 36415; 71046-TC-FY; 74177-TC; 80048; 80053; 82803; 83605; 83690; 83880; 84484; 85025; 85610; 85730; 93005; 93010; 99285-25; C9803-CS; J1100; Q9967; U0003; U0005

== ENCOUNTER 2023-03-13 14:46 | Inpatient (IN) | payer OTHER ==
[2023-03-13] MEDS ORDERED: methylPREDNISolone NA SUCC 125 MG/2 ML VIAL IVPUSH ONE (15:36)
[2023-03-13] MEDS ORDERED: ALBUTEROL SO4 2.5/IPRATROPIUM 0.5 INH SOL 3 ML VIAL.NEB. NEB ONE (16:00)
[2023-03-13] MEDS ORDERED: methylPREDNISolone NA SUCC 125 MG/2 ML VIAL ONE (16:00)
[2023-03-13] MEDS ORDERED: SODIUM CHLORIDE 0.9% 500 ML INFUS.BAG IV ONE (16:02)
[2023-03-13] MEDS: ALBUTEROL SO4 2.5/IPRATROPIUM 0.5 INH SOL 3 ML VIAL.NEB. NEB SCH ×4 (16:05→16:46)
[2023-03-13 16:23] LABS: BASO % 0.3 % (0-2.0); EOS % 2.1 % (0-4.5); HEMATOCRIT 39.6 % (35.4-49); HEMOGLOBIN 13.5 GM/dL (11.7-16.9); LYMPH % 29.2 % (8-40); MCH 29.6 pg (25.7-33.7); MCHC 34.2 g/dl (32.0-35.9); MEAN CELL VOLUME 86.7 fl (80-96); MEAN PLT VOLUME 8.9 fl (7.5-11.1); MONO % 8.3 % (3.8-10.2); NEUT % 60.1 % (42.8-82.8); PLATELET COUNT 292 10^3/uL (134-434); RBC 4.57 M/mm3 (4.00-5.60); RDW 13.9 % (11.9-15.9); VENOUS BASE EXCESS 0.4 mmol/L (-2-2); VENOUS O2 SATURATION 74.6 % (70-80); VENOUS PCO2 45.9 mmHg (38-52); VENOUS PH 7.376 (7.310-7.410)
[2023-03-13 16:31] LABS: INR 0.97 (0.83-1.09); PROTHROMBIN TIME (PATIENT) 11.2 SEC (9.7-13.0)
[2023-03-13 16:34] LABS: ACTIVATED PTT 32.5 SECONDS (25.2-36.5)
[2023-03-13 16:43] LABS: CALCIUM 9.1 mg/dL (8.5-10.1)
[2023-03-13 16:44] LABS: ALBUMIN 3.6 g/dl (3.4-5.0); MAGNESIUM 1.9 mg/dL (1.8-2.4)
[2023-03-13 16:47] LABS: CREATININE 0.8 mg/dL (0.55-1.3)
[2023-03-13 16:48] LABS: BILIRUBIN,TOTAL 0.2 mg/dL (0.2-1)
[2023-03-13 16:52] LABS: N-TERMINAL BNP 34.9 pg/ml (5-125)
[2023-03-13] MEDS ORDERED: morphine CARPU-JECT 2 MG/1 ML DISP.SYRIN IVPUSH ONE (17:13)
[2023-03-13] MEDS ORDERED: ACETAMINOPHEN 1000 MG/100 ML BAG IVPB ONE (17:14)
[2023-03-13] MEDS ORDERED: morphine SULFATE 4 MG/ML VIAL ONE (17:21)
[2023-03-13] MEDS ORDERED: ACETAMINOPHEN INJECTION 100 ML IVPB ONE (17:21)
[2023-03-13] MEDS ORDERED: MAGNESIUM SULF 50% (8.12 MEQ/2 ML-1 GM VIAL) IVPB ONE (17:52)
[2023-03-13] MEDS ORDERED: MAGNESIUM SULFATE IN WATER 2 GM/50 ML IVPB IVPB ONE (18:17)
[2023-03-13 21:24] VITALS: BMI 33.0
[2023-03-13] MEDS ORDERED: BUDESONIDE/FORMETEROL FUMARATE 80/4.5 mcg INHALER IH SCH (22:00)
[2023-03-13] MEDS ORDERED: ACETAMINOPHEN 325 MG TABLET (FP) PO PRN (22:01)
[2023-03-13] MEDS: methylPREDNISolone NA SUCC 40 MG/1 ML VIAL IVPUSH SCH (22:31)
[2023-03-13] MEDS: ENOXAPARIN NA (PORCINE) 40 MG/0.4 ML DISP.SYRIN SQ SCH (22:31)
[2023-03-13] MEDS ORDERED: INSULIN (NOVOLOG) ASPART 100 UNITS/ML 10ML VIAL ONE (22:59)
[2023-03-13] MEDS: INSULIN SLIDING SCALE (NOVOLOG) 1 VIAL SQ SCH (23:01)
[2023-03-14] MEDS: methylPREDNISolone NA SUCC 40 MG/1 ML VIAL IVPUSH SCH ×4 (02:40→21:26)
[2023-03-14] MEDS: INSULIN SLIDING SCALE (NOVOLOG) 1 VIAL SQ SCH ×4 (06:28→21:26)
[2023-03-14 07:57] LABS: HEMATOCRIT 36.6 % (35.4-49); HEMOGLOBIN 12.7 GM/dL (11.7-16.9); MCH 30.2 pg (25.7-33.7); MCHC 34.7 g/dl (32.0-35.9); MEAN CELL VOLUME 87.2 fl (80-96); MEAN PLT VOLUME 9.2 fl (7.5-11.1); PLATELET COUNT 268 10^3/uL (134-434); RDW 13.9 % (11.9-15.9); WHITE BLOOD COUNT 10.3 K/mm3 (4.0-10.0)
[2023-03-14 08:22] LABS: ALBUMIN 3.4 g/dl (3.4-5.0); CALCIUM 9.2 mg/dL (8.5-10.1)
[2023-03-14 08:23] LABS: BLOOD UREA NITROGEN 17.5 mg/dL (7-18)
[2023-03-14 08:25] LABS: CREATININE 0.7 mg/dL (0.55-1.3)
[2023-03-14 08:26] LABS: BILIRUBIN,TOTAL 0.4 mg/dL (0.2-1)
[2023-03-14 08:27] LABS: TOT PROT 6.7 g/dl (6.4-8.2)
[2023-03-14] MEDS: ALBUTEROL SO4 2.5/IPRATROPIUM 0.5 INH SOL 3 ML VIAL.NEB. NEB SCH ×2 (08:36→12:12)
[2023-03-14] MEDS ORDERED: ALBUTEROL SO4 HFA INHALER IH PRN (08:55)
[2023-03-14] MEDS ORDERED: KETOROLAC TROMETHAMINE 15 MG/ML VIAL IVPUSH ONE (08:57)
[2023-03-14] MEDS: ENOXAPARIN NA (PORCINE) 40 MG/0.4 ML DISP.SYRIN SQ SCH (09:41)
[2023-03-14] MEDS: BUDESONIDE/FORMETEROL FUMARATE 80/4.5 mcg INHALER IH SCH ×2 (09:41→21:30)
[2023-03-14] MEDS ORDERED: guaiFENesin 200 MG/10 ML 10 ML UNIT-DOSE CUPS PO PRN (10:20)
[2023-03-14] MEDS ORDERED: LIDOCAINE 5% TOPICAL PATCH TP SCH ×2 (10:30)
[2023-03-14] MEDS ORDERED: IBUPROFEN 600 MG TABLET (FP) PO PRN (10:31)
[2023-03-14] MEDS: NICOTINE 7 MG/24 HOURS TOPICAL PATCH TD SCH (11:11)
[2023-03-14] MEDS ORDERED: ALBUTEROL SO4 0.083% IH SOL 2.5 MG/3 ML VIAL.NEB. NEB PRN (14:40)
[2023-03-14] MEDS: TIOTROPIUM BROMIDE 2.5 MCG (SPIRIVA) RESPIMAT INHALER IH SCH (16:27)
[2023-03-14] MEDS: PANTOPRAZOLE 40 MG TABLET PO SCH (17:18)
[2023-03-14] MEDS ORDERED: MELATONIN 1 MG TABLET PO SCH (22:00)
[2023-03-14] MEDS ORDERED: LIDOCAINE PATCH REMOVAL MC SCH (22:00)
[2023-03-15] MEDS: methylPREDNISolone NA SUCC 40 MG/1 ML VIAL IVPUSH SCH ×2 (03:26→09:12)
[2023-03-15] MEDS: INSULIN SLIDING SCALE (NOVOLOG) 1 VIAL SQ SCH ×2 (06:20→11:29)
[2023-03-15 07:26] LABS: HEMATOCRIT 37.5 % (35.4-49); HEMOGLOBIN 13.1 GM/dL (11.7-16.9); MCH 30.5 pg (25.7-33.7); MCHC 34.9 g/dl (32.0-35.9); MEAN CELL VOLUME 87.5 fl (80-96); MEAN PLT VOLUME 9.2 fl (7.5-11.1); PLATELET COUNT 289 10^3/uL (134-434); RBC 4.28 M/mm3 (4.00-5.60); RDW 14.2 % (11.9-15.9); WHITE BLOOD COUNT 13.5 K/mm3 (4.0-10.0)
[2023-03-15 07:51] LABS: BLOOD UREA NITROGEN 18.2 mg/dL (7-18); CALCIUM 9.6 mg/dL (8.5-10.1)
[2023-03-15 07:52] LABS: ALBUMIN 3.7 g/dl (3.4-5.0); MAGNESIUM 2.1 mg/dL (1.8-2.4)
[2023-03-15 07:54] LABS: CREATININE 0.8 mg/dL (0.55-1.3); PHOSPHOROUS 2.9 mg/dL (2.5-4.9)
[2023-03-15 07:55] LABS: BILIRUBIN,TOTAL 0.4 mg/dL (0.2-1)
[2023-03-15 08:51] VITALS: RESP 18
[2023-03-15] MEDS: NICOTINE 7 MG/24 HOURS TOPICAL PATCH TD SCH (09:12)
[2023-03-15] MEDS: PANTOPRAZOLE 40 MG TABLET PO SCH (09:12)
[2023-03-15] MEDS: ENOXAPARIN NA (PORCINE) 40 MG/0.4 ML DISP.SYRIN SQ SCH (09:12)
[2023-03-15] MEDS: BUDESONIDE/FORMETEROL FUMARATE 80/4.5 mcg INHALER IH SCH (09:20)
[2023-03-15] MEDS: TIOTROPIUM BROMIDE 2.5 MCG (SPIRIVA) RESPIMAT INHALER IH SCH (09:21)
[2023-03-15] MEDS ORDERED: LOSARTAN POTASSIUM 25 MG TABLET PO SCH (10:00)
[2023-03-15] MEDS ORDERED: INSULIN (NOVOLOG) ASPART 100 UNITS/ML 10ML VIAL ONE (11:11)
[2023-03-15 15:42] VITALS: BP 145/110; PULSE 114; TEMP 98.5
== END 2023-03-15 19:31 | disposition home or self-care (01) | DRG 192 ==
LOC: JER 14:46 → OBSVTOIN 18:57 → JERBED 18:57 → J4W 21:31
PROVIDERS: ADMIT Internal Medicine; ATTEND Internal Medicine
DX: J44.1 Chronic obstructive pulmonary disease with (acute) exacerbation (principal); I10 Essential (primary) hypertension; E78.5 Hyperlipidemia, unspecified; E11.9 Type 2 diabetes mellitus without complications; R07.89 Other chest pain; E66.9 Obesity, unspecified; Z68.33 Body mass index [BMI] 33.0-33.9, adult; F17.210 Nicotine dependence, cigarettes, uncomplicated; G47.33 Obstructive sleep apnea (adult) (pediatric); R05.4 Cough syncope
CPT/HCPCS: 0241U-QW; 36415; 71045-TC-FY; 71275-TC; 74174-TC; 80053; 82803; 82962; 83036; 83735; 83880; 84100; 84436; 84443; 84484; 85025; 85027; 85610; 85730; 93005; 93010; 93306-TC; 94010; 94150; 94640; 99285-25; Q9967

== ENCOUNTER 2023-10-24 05:33 | Emergency (ER) | payer OTHER ==
[2023-10-24 05:43] VITALS: BMI 32.8
[2023-10-24] MEDS ORDERED: ALBUTEROL SO4 2.5/IPRATROPIUM 0.5 INH SOL 3 ML VIAL.NEB. NEB ONE (05:59)
[2023-10-24] MEDS ORDERED: methylPREDNISolone NA SUCC 125 MG/2 ML VIAL ONE (06:03)
[2023-10-24] MEDS: ALBUTEROL SO4 2.5/IPRATROPIUM 0.5 INH SOL 3 ML VIAL.NEB. NEB SCH ×4 (06:05→07:00)
[2023-10-24 06:40] LABS: BASO % 0.3 % (0-2.0); EOS % 3.6 % (0-4.5); HEMATOCRIT 42.9 % (35.4-49); HEMOGLOBIN 14.3 GM/dL (11.7-16.9); MCH 30.1 pg (25.7-33.7); MCHC 33.2 g/dl (32.0-35.9); MEAN CELL VOLUME 90.5 fl (80-96); MEAN PLT VOLUME 8.8 fl (7.5-11.1); MONO % 10.7 % (3.8-10.2); NEUT % 55.4 % (42.8-82.8); PLATELET COUNT 288 10^3/uL (134-434); RBC 4.74 M/mm3 (4.00-5.60); RDW 14.6 % (11.9-15.9); WHITE BLOOD COUNT 9.9 K/mm3 (4.0-10.0)
[2023-10-24 06:48] LABS: INR 0.89 (0.83-1.09); PROTHROMBIN TIME (PATIENT) 10.3 SEC (9.7-13.0)
[2023-10-24 06:50] LABS: ACTIVATED PTT 33.1 SECONDS (25.2-36.5)
[2023-10-24] MEDS ORDERED: methylPREDNISolone NA SUCC 125 MG/2 ML VIAL IVPUSH ONE (06:58)
[2023-10-24 07:01] LABS: VENOUS BASE EXCESS 0.5 mmol/L (-2-2); VENOUS O2 SATURATION 83.6 % (70-80); VENOUS PCO2 55.4 mmHg (38-52); VENOUS PH 7.318 (7.310-7.410)
[2023-10-24 07:36] LABS: POTASSIUM 4.8 mmol/L (3.5-5.1)
[2023-10-24 07:39] LABS: BLOOD UREA NITROGEN 20.5 mg/dL (7-18); CALCIUM 9.3 mg/dL (8.5-10.1)
[2023-10-24 07:43] LABS: CREATININE 0.9 mg/dL (0.55-1.3)
[2023-10-24 07:44] LABS: BILIRUBIN,TOTAL 0.7 mg/dL (0.2-1); TOT PROT 7.6 g/dl (6.4-8.2)
[2023-10-24 11:33] VITALS: BP 153/104; RESP 19; TEMP 97.9
[2023-10-24 11:42] VITALS: PULSE 120
== END 2023-10-24 12:09 | disposition home or self-care (01) ==
LOC: JER 05:33
PROC: 3E033GC Introduction of Other Therapeutic Substance into Peripheral Vein, Percutaneous Approach (ICD-10-PCS; principal; 2023-10-24)
PROC: 3E033GC Introduction of Other Therapeutic Substance into Peripheral Vein, Percutaneous Approach (ICD-10-PCS; 2023-10-24)
DX: J44.1 Chronic obstructive pulmonary disease with (acute) exacerbation (principal); R06.00 Dyspnea, unspecified; R00.0 Tachycardia, unspecified; I95.9 Hypotension, unspecified; R06.02 Shortness of breath; R09.02 Hypoxemia; R20.2 Paresthesia of skin; Z20.822 Contact with and (suspected) exposure to COVID-19
CPT/HCPCS: 0241U-QW; 36415; 71045-TC-FY; 74177-TC; 80053; 82803; 83880; 84484; 85025; 85610; 85730; 93005; 93010; 99285-25; Q9967

== ENCOUNTER 2023-10-28 12:32 | Inpatient (IN) | payer OTHER ==
[2023-10-28] MEDS ORDERED: ACETAMINOPHEN 1000 MG/100 ML BAG IVPB ONE (13:16)
[2023-10-28] MEDS ORDERED: morphine CARPU-JECT 4 MG/1 ML DISP.SYRIN IVPUSH ONE ×2 (13:22→17:23)
[2023-10-28] MEDS ORDERED: SODIUM CHLORIDE 0.9% 500 ML INFUS.BAG IV ONE (13:35)
[2023-10-28] MEDS ORDERED: morphine SULFATE 4 MG/ML VIAL ONE ×2 (13:36→18:15)
[2023-10-28 14:22] LABS: BASO % 0.9 % (0-2.0); EOS % 0.3 % (0-4.5); HEMATOCRIT 45.5 % (35.4-49); HEMOGLOBIN 15.1 GM/dL (11.7-16.9); LYMPH % 13.1 % (8-40); MCH 29.9 pg (25.7-33.7); MCHC 33.1 g/dl (32.0-35.9); MEAN CELL VOLUME 90.4 fl (80-96); MEAN PLT VOLUME 9.1 fl (7.5-11.1); MONO % 7.9 % (3.8-10.2); NEUT % 77.8 % (42.8-82.8); PLATELET COUNT 300 10^3/uL (134-434); RBC 5.03 M/mm3 (4.00-5.60); RDW 14.7 % (11.9-15.9); WHITE BLOOD COUNT 16.7 K/mm3 (4.0-10.0)
[2023-10-28 14:29] LABS: INR 1.06 (0.83-1.09); PROTHROMBIN TIME (PATIENT) 12.3 SEC (9.7-13.0)
[2023-10-28 14:45] LABS: POTASSIUM 5.7 mmol/L (3.5-5.1)
[2023-10-28 14:48] LABS: ALBUMIN 3.8 g/dl (3.4-5.0); BLOOD UREA NITROGEN 21.2 mg/dL (7-18); CALCIUM 9.2 mg/dL (8.5-10.1)
[2023-10-28 14:52] LABS: BILIRUBIN,TOTAL 0.9 mg/dL (0.2-1); TOT PROT 7.4 g/dl (6.4-8.2)
[2023-10-28] MEDS ORDERED: ALBUTEROL SO4 2.5/IPRATROPIUM 0.5 INH SOL 3 ML VIAL.NEB. NEB ONE ×2 (15:16→15:19)
[2023-10-28 15:56] LABS: CALCIUM 9.1 mg/dL (8.5-10.1); POTASSIUM 4.3 mmol/L (3.5-5.1)
[2023-10-28 15:58] LABS: BLOOD UREA NITROGEN 20.9 mg/dL (7-18)
[2023-10-28 16:01] LABS: CREATININE 0.9 mg/dL (0.55-1.3)
[2023-10-28] MEDS ORDERED: PIPERACILLIN/TAZOB 4.5 GM 4.5 GM in DEXTROSE 5%-WATER 100 ML IVPB ONE (17:26)
[2023-10-28] MEDS ORDERED: PIPERACILLIN/TAZOB 4.5 GM 4.5 GM/100 ML BAG IVPB ONE (18:15)
[2023-10-28] MEDS: INSULIN SLIDING SCALE (NOVOLOG) 1 VIAL SQ SCH (21:30)
[2023-10-28] MEDS: SODIUM CHLORIDE 1,000 ML IV SCH (21:31)
[2023-10-28] MEDS ORDERED: ALBUTEROL SO4 HFA INHALER IH PRN (22:06)
[2023-10-29 03:36] VITALS: BMI 33.9
[2023-10-29] MEDS ORDERED: INSULIN (NOVOLOG) ASPART 100 UNITS/ML 10ML VIAL ONE (05:27)
[2023-10-29] MEDS: SODIUM CHLORIDE 1,000 ML IV SCH (05:46)
[2023-10-29] MEDS: INSULIN SLIDING SCALE (NOVOLOG) 1 VIAL SQ SCH ×4 (06:24→22:07)
[2023-10-29 07:57] LABS: HEMATOCRIT 41.5 % (35.4-49); MCH 30.8 pg (25.7-33.7); MCHC 33.7 g/dl (32.0-35.9); MEAN CELL VOLUME 91.2 fl (80-96); PLATELET COUNT 264 10^3/uL (134-434); RBC 4.55 M/mm3 (4.00-5.60); RDW 14.8 % (11.9-15.9); WHITE BLOOD COUNT 14.6 K/mm3 (4.0-10.0)
[2023-10-29] MEDS ORDERED: morphine SULFATE 4 MG/ML VIAL IVPUSH ONE (08:15)
[2023-10-29] MEDS: ALBUTEROL SO4 2.5/IPRATROPIUM 0.5 INH SOL 3 ML VIAL.NEB. NEB SCH ×4 (08:20→20:08)
[2023-10-29 08:28] LABS: POTASSIUM 4.4 mmol/L (3.5-5.1)
[2023-10-29 08:58] LABS: CALCIUM 8.6 mg/dL (8.5-10.1)
[2023-10-29 08:59] LABS: ALBUMIN 3.4 g/dl (3.4-5.0); BLOOD UREA NITROGEN 22.8 mg/dL (7-18)
[2023-10-29 09:02] LABS: CREATININE 1.1 mg/dL (0.55-1.3)
[2023-10-29 09:03] LABS: BILIRUBIN,TOTAL 0.8 mg/dL (0.2-1); TOT PROT 6.5 g/dl (6.4-8.2)
[2023-10-29] MEDS: ASPIRIN COATED 81 MG TABLET.EC PO SCH (09:33)
[2023-10-29] MEDS: PANTOPRAZOLE 40 MG TABLET PO SCH (09:33)
[2023-10-29] MEDS: LOSARTAN POTASSIUM 25 MG TABLET PO SCH (09:33)
[2023-10-29] MEDS: CEFTRIAXONE 1 GM in DEXTROSE 5%-WATER - 50 ML IVPB SCH (09:33)
[2023-10-29] MEDS ORDERED: ENOXAPARIN NA (PORCINE) 40 MG/0.4 ML DISP.SYRIN SQ SCH (10:00)
[2023-10-29] MEDS: TIOTROPIUM BROMIDE 2.5 MCG (SPIRIVA) RESPIMAT INHALER IH SCH (13:13)
[2023-10-29] MEDS: BUDESONIDE/FORMETEROL FUMARATE 80/4.5 mcg INHALER IH SCH ×2 (13:13→22:07)
[2023-10-29] MEDS: ACETAMINOPHEN 1000 MG/100 ML BAG IVPB PRN (16:42)
[2023-10-29] MEDS: ATORVASTATIN CA 40 MG TABLET (FP) PO SCH (21:54)
[2023-10-29] MEDS ORDERED: SODIUM CHLORIDE 1,000 ML IV SCH (22:30)
[2023-10-30] MEDS: ACETAMINOPHEN 1000 MG/100 ML BAG IVPB PRN (00:06)
[2023-10-30 01:48] LABS: PH,URINE 5.5 (5.0-8.0); URINE APPEARANCE CLEAR; URINE BILIRUBIN 1+ (NEGATIVE); URINE COLOR DK YELLOW; URINE GLUCOSE (UA) NEGATIVE (NEGATIVE); URINE KETONE TRACE (NEGATIVE); URINE LEUK ESTERASE NEGATIVE (NEGATIVE); URINE NITRITE NEGATIVE (NEGATIVE); URINE PROTEIN TRACE (NEGATIVE)
[2023-10-30] MEDS: SODIUM CHLORIDE 1,000 ML IV SCH (02:41)
[2023-10-30] MEDS: INSULIN SLIDING SCALE (NOVOLOG) 1 VIAL SQ SCH ×4 (06:46→23:51)
[2023-10-30] MEDS: ALBUTEROL SO4 2.5/IPRATROPIUM 0.5 INH SOL 3 ML VIAL.NEB. NEB SCH ×4 (07:55→21:00)
[2023-10-30] MEDS: ACETAMINOPHEN 325 MG TABLET (FP) PO SCH ×3 (08:30→22:37)
[2023-10-30 08:56] LABS: BASO % 0.8 % (0-2.0); EOS % 2.4 % (0-4.5); HEMATOCRIT 38.3 % (35.4-49); HEMOGLOBIN 12.6 GM/dL (11.7-16.9); LYMPH % 15.8 % (8-40); MCH 30.1 pg (25.7-33.7); MCHC 32.8 g/dl (32.0-35.9); MEAN CELL VOLUME 91.8 fl (80-96); MONO % 7.6 % (3.8-10.2); NEUT % 73.4 % (42.8-82.8); PLATELET COUNT 235 10^3/uL (134-434); RBC 4.17 M/mm3 (4.00-5.60); RDW 14.7 % (11.9-15.9)
[2023-10-30 09:16] LABS: POTASSIUM 3.9 mmol/L (3.5-5.1)
[2023-10-30 09:23] LABS: ALBUMIN 3.1 g/dl (3.4-5.0); BLOOD UREA NITROGEN 19.3 mg/dL (7-18); CALCIUM 8.3 mg/dL (8.5-10.1); MAGNESIUM 2.1 mg/dL (1.8-2.4)
[2023-10-30 09:26] LABS: CREATININE 0.8 mg/dL (0.55-1.3); PHOSPHOROUS 2.6 mg/dL (2.5-4.9)
[2023-10-30 09:28] LABS: BILIRUBIN,TOTAL 0.4 mg/dL (0.2-1); TOT PROT 5.9 g/dl (6.4-8.2)
[2023-10-30] MEDS: ASPIRIN COATED 81 MG TABLET.EC PO SCH (10:31)
[2023-10-30] MEDS: LOSARTAN POTASSIUM 25 MG TABLET PO SCH (10:31)
[2023-10-30] MEDS: PANTOPRAZOLE 40 MG TABLET PO SCH (10:31)
[2023-10-30] MEDS: CEFTRIAXONE 1 GM in DEXTROSE 5%-WATER - 50 ML IVPB SCH (10:34)
[2023-10-30] MEDS: TIOTROPIUM BROMIDE 2.5 MCG (SPIRIVA) RESPIMAT INHALER IH SCH (11:31)
[2023-10-30] MEDS: BUDESONIDE/FORMETEROL FUMARATE 80/4.5 mcg INHALER IH SCH ×2 (11:31→23:36)
[2023-10-30] MEDS ORDERED: INSULIN (NOVOLOG) ASPART 100 UNITS/ML 10ML VIAL ONE (21:30)
[2023-10-30] MEDS: ATORVASTATIN CA 40 MG TABLET (FP) PO SCH (22:37)
[2023-10-31] MEDS: ACETAMINOPHEN 325 MG TABLET (FP) PO SCH ×4 (03:50→21:30)
[2023-10-31] MEDS: INSULIN SLIDING SCALE (NOVOLOG) 1 VIAL SQ SCH ×3 (07:50→17:04)
[2023-10-31] MEDS: ALBUTEROL SO4 2.5/IPRATROPIUM 0.5 INH SOL 3 ML VIAL.NEB. NEB SCH ×4 (07:50→20:15)
[2023-10-31 08:48] LABS: BASO % 0.7 % (0-2.0); EOS % 3.6 % (0-4.5); HEMATOCRIT 36.5 % (35.4-49); HEMOGLOBIN 12.1 GM/dL (11.7-16.9); LYMPH % 20.5 % (8-40); MCH 30.3 pg (25.7-33.7); MCHC 33.2 g/dl (32.0-35.9); MEAN CELL VOLUME 91.5 fl (80-96); MEAN PLT VOLUME 9.4 fl (7.5-11.1); MONO % 8.6 % (3.8-10.2); NEUT % 66.6 % (42.8-82.8); PLATELET COUNT 241 10^3/uL (134-434); RBC 3.99 M/mm3 (4.00-5.60); RDW 14.3 % (11.9-15.9); WHITE BLOOD COUNT 7.6 K/mm3 (4.0-10.0)
[2023-10-31 09:17] LABS: POTASSIUM 3.9 mmol/L (3.5-5.1)
[2023-10-31 09:27] LABS: CALCIUM 8.4 mg/dL (8.5-10.1)
[2023-10-31 09:28] LABS: ALBUMIN 3.1 g/dl (3.4-5.0); BLOOD UREA NITROGEN 8.8 mg/dL (7-18)
[2023-10-31 09:31] LABS: CREATININE 0.8 mg/dL (0.55-1.3); PHOSPHOROUS 2.4 mg/dL (2.5-4.9)
[2023-10-31 09:32] LABS: BILIRUBIN,TOTAL 0.5 mg/dL (0.2-1); TOT PROT 5.8 g/dl (6.4-8.2)
[2023-10-31] MEDS: LOSARTAN POTASSIUM 25 MG TABLET PO SCH (09:47)
[2023-10-31] MEDS: CEFTRIAXONE 1 GM in DEXTROSE 5%-WATER - 50 ML IVPB SCH (09:47)
[2023-10-31] MEDS ORDERED: ALPRAZolam 0.25 MG TABLET PO PRN (10:00)
[2023-10-31] MEDS ORDERED: hydrOXYzine PAMOATE 25 MG CAPSULE (FP) PO PRN (10:01)
[2023-10-31] MEDS ORDERED: BISMUTH SUBSALICYLATE 524 MG/30 ML PO PRN (10:01)
[2023-10-31] MEDS ORDERED: MAG HYDROX/AL HYDROX/SIMETH 30 ML UNIT-DOSE CUP PO PRN (10:01)
[2023-10-31] MEDS ORDERED: DICYCLOMINE HCL 10 MG CAPSULE PO PRN (10:01)
[2023-10-31] MEDS ORDERED: MAGNESIUM HYDROX 2400MG/30ML ORAL SUSPENSION 30 ML CUP PO PRN (10:01)
[2023-10-31] MEDS ORDERED: ONDANSETRON 4 MG/2 ML VIAL IVPUSH ONE (10:15)
[2023-10-31] MEDS ORDERED: PRENATAL VITAMINS W/ FOLIC ACID TABLET (FP) PO SCH (10:15)
[2023-10-31] MEDS: ASPIRIN COATED 81 MG TABLET.EC PO SCH (11:08)
[2023-10-31] MEDS: PANTOPRAZOLE 40 MG TABLET PO SCH (11:08)
[2023-10-31] MEDS: TIOTROPIUM BROMIDE 2.5 MCG (SPIRIVA) RESPIMAT INHALER IH SCH (12:27)
[2023-10-31] MEDS: BUDESONIDE/FORMETEROL FUMARATE 80/4.5 mcg INHALER IH SCH ×2 (14:43→21:33)
[2023-10-31] MEDS: NAPH,MB-DB/K PH,MBDB POWDER PACKET PO SCH ×2 (14:43→21:30)
[2023-10-31] MEDS ORDERED: INSULIN (NOVOLOG) ASPART 100 UNITS/ML 10ML VIAL ONE (17:02)
[2023-10-31] MEDS: ATORVASTATIN CA 40 MG TABLET (FP) PO SCH (21:30)
[2023-10-31] MEDS ORDERED: THIAMINE HCL 100 MG TABLET (FP) PO SCH (22:00)
[2023-11-01] MEDS: INSULIN SLIDING SCALE (NOVOLOG) 1 VIAL SQ SCH ×3 (00:15→11:31)
[2023-11-01] MEDS: ACETAMINOPHEN 325 MG TABLET (FP) PO SCH ×3 (03:13→13:14)
[2023-11-01] MEDS: NAPH,MB-DB/K PH,MBDB POWDER PACKET PO SCH (07:02)
[2023-11-01] MEDS: ALBUTEROL SO4 2.5/IPRATROPIUM 0.5 INH SOL 3 ML VIAL.NEB. NEB SCH ×2 (08:00→12:21)
[2023-11-01 09:29] LABS: EOS % 3.5 % (0-4.5); HEMATOCRIT 36.9 % (35.4-49); HEMOGLOBIN 12.1 GM/dL (11.7-16.9); LYMPH % 18.9 % (8-40); MCHC 32.8 g/dl (32.0-35.9); MEAN CELL VOLUME 91.4 fl (80-96); MEAN PLT VOLUME 9.3 fl (7.5-11.1); MONO % 9.2 % (3.8-10.2); NEUT % 67.4 % (42.8-82.8); PLATELET COUNT 252 10^3/uL (134-434); RBC 4.04 M/mm3 (4.00-5.60); RDW 14.7 % (11.9-15.9); WHITE BLOOD COUNT 7.6 K/mm3 (4.0-10.0)
[2023-11-01] MEDS: ASPIRIN COATED 81 MG TABLET.EC PO SCH (09:29)
[2023-11-01] MEDS: PANTOPRAZOLE 40 MG TABLET PO SCH (09:29)
[2023-11-01] MEDS: LOSARTAN POTASSIUM 25 MG TABLET PO SCH (09:29)
[2023-11-01] MEDS: TIOTROPIUM BROMIDE 2.5 MCG (SPIRIVA) RESPIMAT INHALER IH SCH (09:29)
[2023-11-01] MEDS: CEFTRIAXONE 1 GM in DEXTROSE 5%-WATER - 50 ML IVPB SCH (09:29)
[2023-11-01] MEDS: BUDESONIDE/FORMETEROL FUMARATE 80/4.5 mcg INHALER IH SCH (09:30)
[2023-11-01 09:35] LABS: POTASSIUM 3.9 mmol/L (3.5-5.1)
[2023-11-01 09:37] LABS: CALCIUM 8.3 mg/dL (8.5-10.1)
[2023-11-01 09:38] LABS: ALBUMIN 3.1 g/dl (3.4-5.0); BLOOD UREA NITROGEN 11.3 mg/dL (7-18); MAGNESIUM 1.9 mg/dL (1.8-2.4)
[2023-11-01 09:40] LABS: CREATININE 0.8 mg/dL (0.55-1.3)
[2023-11-01 09:42] LABS: BILIRUBIN,TOTAL 0.3 mg/dL (0.2-1); TOT PROT 5.8 g/dl (6.4-8.2)
[2023-11-01] MEDS ORDERED: INSULIN (NOVOLOG) ASPART 100 UNITS/ML 10ML VIAL ONE (11:17)
[2023-11-01 11:59] VITALS: BP 144/74; PULSE 92; RESP 20; TEMP 98.2
[2023-11-01] MEDS ORDERED: metroNIDAZOLE 250 MG TABLET PO SCH (14:00)
[2023-11-01] MEDS ORDERED: CEFUROXIME AXETIL 500 MG TABLET PO SCH (22:00)
== END 2023-11-01 13:25 | disposition home or self-care (01) | DRG 394 ==
LOC: JER 12:32 → JERBED 17:45 → J8W 10-29 01:04
PROVIDERS: ADMIT Internal Medicine; ATTEND Nurse Practitioner Acute Care
PROC: 0DBL8ZX Excision of Transverse Colon, Via Natural or Artificial Opening Endoscopic, Diagnostic (ICD-10-PCS; 2023-10-31)
PROC: 0DBN8ZX Excision of Sigmoid Colon, Via Natural or Artificial Opening Endoscopic, Diagnostic (ICD-10-PCS; 2023-10-31)
PROC: 0DBP8ZX Excision of Rectum, Via Natural or Artificial Opening Endoscopic, Diagnostic (ICD-10-PCS; 2023-10-31)
PROC: 0DBM8ZX Excision of Descending Colon, Via Natural or Artificial Opening Endoscopic, Diagnostic (ICD-10-PCS; principal; 2023-10-31 14:45)
DX: K55.9 Vascular disorder of intestine, unspecified (principal); K62.5 Hemorrhage of anus and rectum; J44.9 Chronic obstructive pulmonary disease, unspecified; E11.9 Type 2 diabetes mellitus without complications; I10 Essential (primary) hypertension; R10.32 Left lower quadrant pain; N40.0 Benign prostatic hyperplasia without lower urinary tract symptoms; E78.5 Hyperlipidemia, unspecified; K52.9 Noninfective gastroenteritis and colitis, unspecified; F17.210 Nicotine dependence, cigarettes, uncomplicated; E66.9 Obesity, unspecified; Z68.33 Body mass index [BMI] 33.0-33.9, adult; R50.9 Fever, unspecified; R00.0 Tachycardia, unspecified; D72.829 Elevated white blood cell count, unspecified; D12.5 Benign neoplasm of sigmoid colon; D12.8 Benign neoplasm of rectum
CPT/HCPCS: 0241U-QW; 36415; 74174-TC; 80048; 80053; 81003; 82272; 82962; 83036; 83605; 83690; 83735; 84100; 85025; 85027; 85610; 86850; 86900; 86901; 87040; 87045; 87046; 87209; 87324; 87449; 88305-TC; 93005; 93010; 94640; 99285-25

== ENCOUNTER 2024-02-23 00:12 | Observation (INO) | payer OTHER ==
[2024-02-23] MEDS: ALBUTEROL SO4 2.5/IPRATROPIUM 0.5 INH SOL 3 ML VIAL.NEB. NEB SCH ×2 (01:19→13:29)
[2024-02-23 01:21] LABS: VENOUS BASE EXCESS -1.4 mmol/L (-2-2); VENOUS O2 SATURATION 77.6 % (70-80); VENOUS PCO2 43.9 mmHg (38-52); VENOUS PH 7.359 (7.310-7.410)
[2024-02-23] MEDS ORDERED: methylPREDNISolone NA SUCC 125 MG/2 ML VIAL ONE (01:28)
[2024-02-23] MEDS ORDERED: ACETAMINOPHEN INJECTION 100 ML IVPB ONE (01:28)
[2024-02-23 01:30] LABS: BASO % 1.5 % (0-2.0); EOS % 2.7 % (0-4.5); HEMATOCRIT 40.7 % (35.4-49); HEMOGLOBIN 13.9 GM/dL (11.7-16.9); LYMPH % 25.7 % (8-40); MCH 30.1 pg (25.7-33.7); MEAN CELL VOLUME 88.4 fl (80-96); MEAN PLT VOLUME 8.4 fl (7.5-11.1); MONO % 7.3 % (3.8-10.2); NEUT % 62.8 % (42.8-82.8); PLATELET COUNT 296 10^3/uL (134-434); RBC 4.61 M/mm3 (4.00-5.60); RDW 14.3 % (11.9-15.9); WHITE BLOOD COUNT 10.1 K/mm3 (4.0-10.0)
[2024-02-23] MEDS: methylPREDNISolone NA SUCC 125 MG/2 ML VIAL IVPUSH ONE (01:38)
[2024-02-23] MEDS: ACETAMINOPHEN 1000 MG/100 ML BAG IVPB ONE ×2 (01:39→21:20)
[2024-02-23 01:45] LABS: POTASSIUM 4.7 mmol/L (3.5-5.1)
[2024-02-23 01:47] LABS: ALBUMIN 3.9 g/dl (3.4-5.0); CALCIUM 9.4 mg/dL (8.5-10.1); MAGNESIUM 2.1 mg/dL (1.8-2.4)
[2024-02-23 01:48] LABS: BLOOD UREA NITROGEN 16.7 mg/dL (7-18)
[2024-02-23 01:52] LABS: BILIRUBIN,TOTAL 0.2 mg/dL (0.2-1); TOT PROT 7.2 g/dl (6.4-8.2)
[2024-02-23 02:02] LABS: INR 0.9 (0.83-1.09); PROTHROMBIN TIME (PATIENT) 10.5 SEC (9.7-13.0)
[2024-02-23 02:03] LABS: CHOLESTEROL 214 mg/dL (50-200)
[2024-02-23 02:04] LABS: LDL CHOLESTEROL (ONLY SJRH) 149 mg/dL (5-100)
[2024-02-23 02:05] LABS: HDL CHOLESTEROL 35 mg/dL (40-60)
[2024-02-23] MEDS: SODIUM CHLORIDE 1,000 ML IV SCH (02:29)
[2024-02-23 05:33] VITALS: BMI 35.3
[2024-02-23] MEDS: INSULIN ASPART SLIDING SCALE (NOVOLOG) 1 VIAL SQ SCH (07:01)
[2024-02-23 09:04] LABS: BASO % 0.5 % (0-2.0); EOS % 0.1 % (0-4.5); HEMATOCRIT 38.7 % (35.4-49); HEMOGLOBIN 13.2 GM/dL (11.7-16.9); LYMPH % 9.4 % (8-40); MCH 30.1 pg (25.7-33.7); MEAN CELL VOLUME 88.6 fl (80-96); MONO % 1.3 % (3.8-10.2); NEUT % 88.7 % (42.8-82.8); PLATELET COUNT 286 10^3/uL (134-434); RBC 4.37 M/mm3 (4.00-5.60); RDW 14.4 % (11.9-15.9); WHITE BLOOD COUNT 9.8 K/mm3 (4.0-10.0)
[2024-02-23 09:19] LABS: POTASSIUM 4.6 mmol/L (3.5-5.1)
[2024-02-23 09:23] LABS: ALBUMIN 3.7 g/dl (3.4-5.0); CALCIUM 9.2 mg/dL (8.5-10.1)
[2024-02-23 09:24] LABS: MAGNESIUM 1.8 mg/dL (1.8-2.4)
[2024-02-23 09:27] LABS: CREATININE 1.1 mg/dL (0.55-1.3); PHOSPHOROUS 2.4 mg/dL (2.5-4.9)
[2024-02-23 09:28] LABS: BILIRUBIN,TOTAL 0.4 mg/dL (0.2-1); TOT PROT 6.8 g/dl (6.4-8.2)
[2024-02-23] MEDS: NICOTINE 7 MG/24 HOURS TOPICAL PATCH TD SCH (10:55)
[2024-02-23] MEDS: methylPREDNISolone NA SUCC 40 MG/1 ML VIAL IVPUSH SCH (10:55)
[2024-02-23] MEDS: ENOXAPARIN NA (PORCINE) 40 MG/0.4 ML DISP.SYRIN SQ SCH (10:55)
[2024-02-23] MEDS: PANTOPRAZOLE 40 MG TABLET PO SCH (10:56)
[2024-02-23] MEDS: AZITHROMYCIN IVPB 500 MG in DEXTROSE 5%-WATER - 250 ML IVPB SCH (12:37)
[2024-02-23] MEDS: AZITHROMYCIN IVPB 500 MG/250 ML BAG IVPB SCH (12:40)
[2024-02-23] MEDS: BUDESONIDE/FORMETEROL FUMARATE 160/4.5 mcg INHALER IH SCH (13:11)
[2024-02-23 15:15] LABS: PH,URINE 5.5 (5.0-8.0); URINE APPEARANCE CLEAR; URINE BILIRUBIN NEGATIVE (NEGATIVE); URINE COLOR YELLOW; URINE GLUCOSE (UA) 3+ (NEGATIVE); URINE KETONE NEGATIVE (NEGATIVE); URINE LEUK ESTERASE NEGATIVE (NEGATIVE); URINE NITRITE NEGATIVE (NEGATIVE); URINE PROTEIN NEGATIVE (NEGATIVE); URINE UROBILINOGEN 0.2 mg/dL (0.2-1.0)
[2024-02-23] MEDS: LIDOCAINE 4% PATCH TP SCH (16:17)
[2024-02-24] MEDS: LIDOCAINE PATCH REMOVAL MC SCH (04:00)
[2024-02-24] MEDS: methylPREDNISolone NA SUCC 40 MG/1 ML VIAL IVPUSH SCH ×2 (09:56→13:48)
[2024-02-24] MEDS: TIOTROPIUM BROMIDE 2.5 MCG (SPIRIVA) RESPIMAT INHALER IH SCH (13:48)
[2024-02-24] MEDS: MAGNESIUM 1GM/D5W 100ML - 100 ML IVPB IVPB ONE (13:49)
[2024-02-24] MEDS ORDERED: INSULIN (NOVOLOG) ASPART 100 UNITS/ML 10ML VIAL ONE (17:07)
[2024-02-24] MEDS: ATORVASTATIN CA 40 MG TABLET (FP) PO SCH (21:10)
[2024-02-25 08:06] LABS: BASO % 0.5 % (0-2.0); HEMOGLOBIN 12.9 GM/dL (11.7-16.9); LYMPH % 9.9 % (8-40); MCH 29.1 pg (25.7-33.7); MCHC 32.2 g/dl (32.0-35.9); MEAN CELL VOLUME 90.4 fl (80-96); MONO % 2.2 % (3.8-10.2); NEUT % 87.4 % (42.8-82.8); PLATELET COUNT 288 10^3/uL (134-434); RBC 4.42 M/mm3 (4.00-5.60); RDW 14.5 % (11.9-15.9); WHITE BLOOD COUNT 13.2 K/mm3 (4.0-10.0)
[2024-02-25 08:22] LABS: POTASSIUM 4.5 mmol/L (3.5-5.1)
[2024-02-25 08:26] LABS: ALBUMIN 3.6 g/dl (3.4-5.0); BLOOD UREA NITROGEN 23.7 mg/dL (7-18); CALCIUM 9.2 mg/dL (8.5-10.1)
[2024-02-25 08:29] LABS: CREATININE 0.9 mg/dL (0.55-1.3)
[2024-02-25 08:31] LABS: BILIRUBIN,TOTAL 0.4 mg/dL (0.2-1)
[2024-02-25] MEDS: LOSARTAN POTASSIUM 25 MG TABLET PO SCH (10:08)
[2024-02-25 11:03] VITALS: RESP 20
[2024-02-25] MEDS ORDERED: INSULIN (NOVOLOG) ASPART 100 UNITS/ML 10ML VIAL ONE ×2 (17:02→20:58)
[2024-02-25] MEDS ORDERED: INSULIN (LEVEMIR) 100 UNITS/ML UNITS SQ ONE (20:58)
[2024-02-25] MEDS: INSULIN (LEVEMIR) 100 UNITS/ML UNITS SQ SCH (21:25)
[2024-02-26 06:29] VITALS: BP 143/89; PULSE 74; TEMP 98.8
[2024-02-26 08:30] LABS: POTASSIUM 4.3 mmol/L (3.5-5.1)
[2024-02-26 08:35] LABS: BLOOD UREA NITROGEN 21.5 mg/dL (7-18)
[2024-02-26 08:38] LABS: CREATININE 0.9 mg/dL (0.55-1.3)
[2024-02-26 08:47] LABS: BASO % 0.4 % (0-2.0); HEMATOCRIT 39.2 % (35.4-49); HEMOGLOBIN 13.1 GM/dL (11.7-16.9); LYMPH % 14.2 % (8-40); MCH 29.6 pg (25.7-33.7); MCHC 33.4 g/dl (32.0-35.9); MEAN CELL VOLUME 88.7 fl (80-96); MEAN PLT VOLUME 9.3 fl (7.5-11.1); MONO % 4.5 % (3.8-10.2); NEUT % 80.9 % (42.8-82.8); PLATELET COUNT 310 10^3/uL (134-434); RBC 4.42 M/mm3 (4.00-5.60); WHITE BLOOD COUNT 12.3 K/mm3 (4.0-10.0)
== END 2024-02-26 09:59 | disposition left against medical advice (07) ==
LOC: JER 00:12 → JERBED 03:03 → J7W 05:20
PROVIDERS: ADMIT Internal Medicine; ATTEND Nurse Practitioner Acute Care
PROC: 3E033NZ Introduction of Analgesics, Hypnotics, Sedatives into Peripheral Vein, Percutaneous Approach (ICD-10-PCS; principal; 2024-02-23)
PROC: 3E0F7GC Introduction of Other Therapeutic Substance into Respiratory Tract, Via Natural or Artificial Opening (ICD-10-PCS; 2024-02-23)
PROC: 3E03329 Introduction of Other Anti-infective into Peripheral Vein, Percutaneous Approach (ICD-10-PCS; 2024-02-23)
PROC: 3E023GC Introduction of Other Therapeutic Substance into Muscle, Percutaneous Approach (ICD-10-PCS; 2024-02-23)
PROC: 3E013VG Introduction of Insulin into Subcutaneous Tissue, Percutaneous Approach (ICD-10-PCS; 2024-02-23)
PROC: 3E0337Z Introduction of Electrolytic and Water Balance Substance into Peripheral Vein, Percutaneous Approach (ICD-10-PCS; 2024-02-23)
DX: J44.1 Chronic obstructive pulmonary disease with (acute) exacerbation (principal); W18.39XA Other fall on same level, initial encounter; Y93.89 Activity, other specified; D72.829 Elevated white blood cell count, unspecified; Y92.003 Bedroom of unspecified non-institutional (private) residence as the place of occurrence of the external cause; E83.42 Hypomagnesemia; E11.9 Type 2 diabetes mellitus without complications; M54.50 Low back pain, unspecified; I10 Essential (primary) hypertension; E66.9 Obesity, unspecified; E78.5 Hyperlipidemia, unspecified; Z90.49 Acquired absence of other specified parts of digestive tract; Z86.73 Personal history of transient ischemic attack (TIA), and cerebral infarction without residual deficits; Z29.89 Encounter for other specified prophylactic measures; F17.210 Nicotine dependence, cigarettes, uncomplicated; J30.1 Allergic rhinitis due to pollen; Z91.013 Allergy to seafood
CPT/HCPCS: 0241U-QW; 36415; 70450-TC; 70551-TC; 71045-TC-FY; 80048; 80053; 80061; 81003; 82803; 82962; 83036; 83735; 83880; 84100; 84443; 84484; 85025; 85610; 85730; 86850; 86900; 86901; 93005; 93010; 93880-TC; 94150; 94640; 96361; 96365; 96372; 96375; 96376; 99285-25; G0378; J0131

== ENCOUNTER 2024-09-01 06:53 | Inpatient (IN) | payer OTHER ==
[2024-09-01] MEDS: ALBUTEROL SO4 2.5/IPRATROPIUM 0.5 INH SOL 3 ML VIAL.NEB. NEB SCH ×2 (07:00→12:30)
[2024-09-01] MEDS ORDERED: ALBUTEROL SO4 2.5/IPRATROPIUM 0.5 INH SOL 3 ML VIAL.NEB. NEB ONE (07:29)
[2024-09-01] MEDS ORDERED: ACETAMINOPHEN INJECTION 100 ML ONE (07:29)
[2024-09-01] MEDS ORDERED: MAGNESIUM SULFATE IN WATER 2 GM/50 ML IVPB IVPB ONE (07:29)
[2024-09-01] MEDS ORDERED: methylPREDNISolone NA SUCC 125 MG/2 ML VIAL ONE (07:29)
[2024-09-01] MEDS: MAGNESIUM SULF 50% (8.12 MEQ/2 ML-1 GM VIAL) IVPB ONE (07:47)
[2024-09-01] MEDS: methylPREDNISolone NA SUCC 125 MG/2 ML VIAL IVPUSH ONE (07:47)
[2024-09-01] MEDS: ACETAMINOPHEN 1000 MG/100 ML BAG IVPB ONE (07:47)
[2024-09-01 07:54] LABS: BASO % 0.5 % (0-2.0); EOS % 2.2 % (0-4.5); HEMATOCRIT 42.9 % (35.4-49); HEMOGLOBIN 14.5 GM/dL (11.7-16.9); LYMPH % 28.3 % (8-40); MCH 29.8 pg (25.7-33.7); MCHC 33.8 g/dl (32.0-35.9); MEAN CELL VOLUME 88.2 fl (80-96); MEAN PLT VOLUME 8.3 fl (7.5-11.1); MONO % 7.9 % (3.8-10.2); NEUT % 61.1 % (42.8-82.8); PLATELET COUNT 284 10^3/uL (134-434); RBC 4.86 M/mm3 (4.00-5.60); RDW 14.8 % (11.9-15.9); VENOUS BASE EXCESS 1.8 mmol/L (-2-2); VENOUS PCO2 50.5 mmHg (38-52); VENOUS PH 7.364 (7.310-7.410); WHITE BLOOD COUNT 10.4 K/mm3 (4.0-10.0)
[2024-09-01 08:12] LABS: INR 0.89 (0.83-1.09); PROTHROMBIN TIME (PATIENT) 10.1 SEC (9.7-13.0)
[2024-09-01 08:15] LABS: ACTIVATED PTT 32.4 SECONDS (25.2-36.5)
[2024-09-01 08:25] LABS: POTASSIUM 4.6 mmol/L (3.5-5.1)
[2024-09-01 08:27] LABS: ALBUMIN 3.7 g/dl (3.4-5.0); BLOOD UREA NITROGEN 16.1 mg/dL (7-18); CALCIUM 9.3 mg/dL (8.5-10.1); MAGNESIUM 1.9 mg/dL (1.8-2.4)
[2024-09-01 08:30] LABS: CREATININE 0.9 mg/dL (0.55-1.3)
[2024-09-01 08:32] LABS: BILIRUBIN,TOTAL 0.2 mg/dL (0.2-1)
[2024-09-01] MEDS ORDERED: AZITHROMYCIN IVPB 500 MG/250 ML BAG IVPB ONE (08:53)
[2024-09-01] MEDS: AZITHROMYCIN IVPB 500 MG in DEXTROSE 5%-WATER - 250 ML IVPB ONE (09:07)
[2024-09-01] MEDS ORDERED: ALBUTEROL SO4 0.083% IH SOL 2.5 MG/3 ML VIAL.NEB. NEB PRN (10:56)
[2024-09-01] MEDS ORDERED: LOSARTAN POTASSIUM 25 MG TABLET ONE (11:24)
[2024-09-01] MEDS ORDERED: PANTOPRAZOLE 40 MG TABLET PO ONE (11:24)
[2024-09-01] MEDS: PANTOPRAZOLE 40 MG TABLET PO SCH (11:29)
[2024-09-01] MEDS: LOSARTAN POTASSIUM 25 MG TABLET PO SCH (11:29)
[2024-09-01] MEDS: BUDESONIDE/FORMETEROL FUMARATE 160/4.5 mcg INHALER IH SCH (13:51)
[2024-09-01] MEDS: TIOTROPIUM BROMIDE 2.5 MCG (SPIRIVA) RESPIMAT INHALER IH SCH (13:53)
[2024-09-01] MEDS: methylPREDNISolone NA SUCC 40 MG/1 ML VIAL IVPUSH SCH (14:06)
[2024-09-01 15:41] VITALS: BMI 35.4
[2024-09-01] MEDS: INSULIN ASPART SLIDING SCALE (NOVOLOG) 1 VIAL SQ SCH (17:41)
[2024-09-01] MEDS: ATORVASTATIN CA 40 MG TABLET (FP) PO SCH (21:14)
[2024-09-02] MEDS ORDERED: ACETAMINOPHEN 1000 MG/100 ML BAG IVPB PRN (02:28)
[2024-09-02 07:04] LABS: HEMATOCRIT 40.8 % (35.4-49); HEMOGLOBIN 13.7 GM/dL (11.7-16.9); MCH 29.6 pg (25.7-33.7); MCHC 33.7 g/dl (32.0-35.9); MEAN CELL VOLUME 88.1 fl (80-96); MEAN PLT VOLUME 8.6 fl (7.5-11.1); PLATELET COUNT 310 10^3/uL (134-434); RBC 4.63 M/mm3 (4.00-5.60); RDW 15.2 % (11.9-15.9); WHITE BLOOD COUNT 14.9 K/mm3 (4.0-10.0)
[2024-09-02 07:20] LABS: CALCIUM 9.8 mg/dL (8.5-10.1)
[2024-09-02 07:21] LABS: BLOOD UREA NITROGEN 32.6 mg/dL (7-18)
[2024-09-02 07:24] LABS: CREATININE 1.1 mg/dL (0.55-1.3)
[2024-09-02] MEDS: AZITHROMYCIN 250 MG TABLET PO SCH (09:44)
[2024-09-02] MEDS: ENOXAPARIN NA (PORCINE) 40 MG/0.4 ML DISP.SYRIN SQ SCH (09:44)
[2024-09-03 07:32] LABS: BASO % 1.3 % (0-2.0); HEMATOCRIT 39.6 % (35.4-49); HEMOGLOBIN 12.7 GM/dL (11.7-16.9); LYMPH % 20.4 % (8-40); MCH 28.9 pg (25.7-33.7); MCHC 32.1 g/dl (32.0-35.9); MEAN CELL VOLUME 90.1 fl (80-96); MONO % 5.7 % (3.8-10.2); NEUT % 72.6 % (42.8-82.8); PLATELET COUNT 270 10^3/uL (134-434); RDW 14.8 % (11.9-15.9); WHITE BLOOD COUNT 14.1 K/mm3 (4.0-10.0)
[2024-09-03] MEDS ORDERED: ACETAMINOPHEN 500 MG TABLET (FP) PO PRN (07:51)
[2024-09-03 07:59] LABS: POTASSIUM 4.2 mmol/L (3.5-5.1)
[2024-09-03 08:36] LABS: ALBUMIN 3.6 g/dl (3.4-5.0); CALCIUM 9.2 mg/dL (8.5-10.1)
[2024-09-03 08:37] LABS: BLOOD UREA NITROGEN 35.9 mg/dL (7-18)
[2024-09-03 08:41] LABS: BILIRUBIN,TOTAL 0.3 mg/dL (0.2-1); TOT PROT 6.4 g/dl (6.4-8.2)
[2024-09-03] MEDS: predniSONE 20 MG TABLET (UD) PO SCH (10:28)
[2024-09-03] MEDS: ALBUTEROL SO4 0.083% IH SOL 2.5 MG/3 ML VIAL.NEB. NEB PRN (15:25)
[2024-09-03] MEDS: methylPREDNISolone NA SUCC 40 MG/1 ML VIAL IVPUSH SCH (18:05)
[2024-09-03] MEDS ORDERED: methylPREDNISolone NA SUCC 40 MG/1 ML VIAL IVPUSH SCH (22:00)
[2024-09-04 07:33] LABS: BASO % 0.7 % (0-2.0); HEMATOCRIT 42.7 % (35.4-49); HEMOGLOBIN 13.8 GM/dL (11.7-16.9); MCH 28.8 pg (25.7-33.7); MCHC 32.4 g/dl (32.0-35.9); MEAN CELL VOLUME 88.9 fl (80-96); NEUT % 87.3 % (42.8-82.8); PLATELET COUNT 306 10^3/uL (134-434); RDW 15.1 % (11.9-15.9); WHITE BLOOD COUNT 12.6 K/mm3 (4.0-10.0)
[2024-09-04 07:57] LABS: CALCIUM 9.6 mg/dL (8.5-10.1)
[2024-09-04 07:58] LABS: ALBUMIN 3.8 g/dl (3.4-5.0); BLOOD UREA NITROGEN 28.2 mg/dL (7-18)
[2024-09-04 08:02] VITALS: BP 147/99; PULSE 105; RESP 18; TEMP 97.6
[2024-09-04 08:02] LABS: CREATININE 0.9 mg/dL (0.55-1.3)
[2024-09-04 08:03] LABS: BILIRUBIN,TOTAL 0.6 mg/dL (0.2-1); TOT PROT 7.1 g/dl (6.4-8.2)
[2024-09-04] MEDS ORDERED: metFORMIN HCL 500 MG TABLET (FP) PO SCH (16:30)
== END 2024-09-04 13:33 | disposition home or self-care (01) | DRG 190 ==
LOC: JER 06:53 → JERBED 08:24 → J4W 12:02
PROVIDERS: ADMIT Student in an Organized Health Care Education/Training Program; ATTEND Internal Medicine
DX: J44.1 Chronic obstructive pulmonary disease with (acute) exacerbation (principal); J96.01 Acute respiratory failure with hypoxia; I10 Essential (primary) hypertension; E78.5 Hyperlipidemia, unspecified; R07.89 Other chest pain; E11.9 Type 2 diabetes mellitus without complications; G47.33 Obstructive sleep apnea (adult) (pediatric); E66.9 Obesity, unspecified; Z68.35 Body mass index [BMI] 35.0-35.9, adult; Z86.73 Personal history of transient ischemic attack (TIA), and cerebral infarction without residual deficits
CPT/HCPCS: 0241U-QW; 36415; 71045-TC-FY; 80048; 80053; 80061; 82803; 82962; 83036; 83690; 83735; 84484; 85025; 85027; 85610; 85730; 86850; 86900; 86901; 93005; 93010; 94640; 94660; 94761; 99285-25; J0131

== ENCOUNTER 2025-04-30 10:42 | Observation (INO) | payer OTHER ==
[2025-04-30] MEDS ORDERED: methylPREDNISolone NA SUCC 125 MG/2 ML VIAL ONE (10:59)
[2025-04-30] MEDS ORDERED: ALBUTEROL SO4 2.5/IPRATROPIUM 0.5 INH SOL 3 ML VIAL.NEB. NEB ONE ×2 (10:59→12:27)
[2025-04-30] MEDS: ALBUTEROL SO4 2.5/IPRATROPIUM 0.5 INH SOL 3 ML VIAL.NEB. NEB SCH ×2 (11:21→19:00)
[2025-04-30] MEDS: methylPREDNISolone NA SUCC 125 MG/2 ML VIAL IVPB ONE (11:21)
[2025-04-30 11:34] LABS: ABSOLUTE IMMATURE GRANULOCYTES 0.06 x10^3/uL (0.0-0.031); BASOPHILS # 0.08 x10^3/uL (0.01-0.08); EOSINOPHIL % 3.1 % (0.8-7.0); EOSINOPHILS # 0.28 x10^3/uL (0.04-0.54); HEMATOCRIT 44.8 % (40.1-51.0); HEMOGLOBIN 14.6 g/dL (13.7-17.5); MCHC 32.6 g/dl (32.3-36.5); MEAN CELL VOLUME 91.2 fl (79.0-92.2); MEAN PLT VOLUME 10.8 fl (9.4-12.4); MONOCYTE # 0.72 x10^3/uL (0.30-0.82); MONOCYTE % 7.9 % (5.3-12.2); PLATELET COUNT 305 x10^3/uL (163-337); RDW 13.1 % (12.2-16.1)
[2025-04-30 11:42] LABS: INR 0.97 (0.83-1.09); PROTHROMBIN TIME (PATIENT) 10.7 SEC (9.7-13.0)
[2025-04-30 11:45] LABS: ACTIVATED PTT 31.9 SECONDS (25.2-36.5)
[2025-04-30 11:47] LABS: VENOUS BASE EXCESS 3.1 mmol/L (-2-2); VENOUS O2 SATURATION 95.9 % (70-80); VENOUS PCO2 41.7 mmHg (38-52); VENOUS PH 7.439 (7.310-7.410)
[2025-04-30 11:53] LABS: POTASSIUM 4.8 mmol/L (3.5-5.1)
[2025-04-30 11:55] LABS: ALBUMIN 3.7 g/dl (3.4-5.0); BLOOD UREA NITROGEN 15.7 mg/dL (7-18); CALCIUM 9.7 mg/dL (8.5-10.1)
[2025-04-30 11:58] LABS: CREATININE 1.2 mg/dL (0.55-1.3)
[2025-04-30 12:00] LABS: BILIRUBIN,TOTAL 0.3 mg/dL (0.2-1); TOT PROT 7.2 g/dl (6.4-8.2)
[2025-04-30 12:03] LABS: N-TERMINAL BNP 19.9 pg/ml (5-125)
[2025-04-30] MEDS ORDERED: ACETAMINOPHEN 325 MG TABLET (FP) ONE (12:28)
[2025-04-30] MEDS ORDERED: AZITHROMYCIN 500 MG TABLET ONE (12:30)
[2025-04-30] MEDS: AZITHROMYCIN 250 MG TABLET PO ONE (12:30)
[2025-04-30] MEDS: ACETAMINOPHEN 325 MG TABLET (FP) PO ONE (12:30)
[2025-04-30 12:49] LABS: HCV DIAGNOSTIC IN-HOUSE W/RFLX NON-REACTIVE (NONREACTIVE)
[2025-04-30 12:51] LABS: HIV INTERPRETATION NEGATIVE (NEGATIVE)
[2025-04-30] MEDS ORDERED: ALBUTEROL SO4 0.083% IH SOL 2.5 MG/3 ML VIAL.NEB. NEB PRN (14:13)
[2025-04-30] MEDS ORDERED: ACETAMINOPHEN 500 MG TABLET (FP) PO PRN (14:14)
[2025-04-30] MEDS: INSULIN ASPART SLIDING SCALE (NOVOLOG) 1 VIAL SQ SCH (17:46)
[2025-04-30 18:44] VITALS: BMI 35.3
[2025-04-30] MEDS: HEPARIN NA (PORCINE) 5,000 UNITS/ML 1ML VIAL SQ SCH (21:17)
[2025-04-30] MEDS: KETOROLAC TROMETHAMINE 15 MG/ML VIAL IVPUSH PRN (21:17)
[2025-04-30] MEDS: ATORVASTATIN CA 40 MG TABLET (FP) PO SCH (21:17)
[2025-05-01] MEDS: INSULIN (NOVOLOG) ASPART 100 UNITS/ML 10ML VIAL SQ ONE (01:46)
[2025-05-01 08:53] LABS: ABSOLUTE IMMATURE GRANULOCYTES 0.07 x10^3/uL (0.0-0.031); BASOPHILS # 0.04 x10^3/uL (0.01-0.08); EOSINOPHIL % 0.2 % (0.8-7.0); EOSINOPHILS # 0.03 x10^3/uL (0.04-0.54); HEMOGLOBIN 13.9 g/dL (13.7-17.5); MCHC 32.3 g/dl (32.3-36.5); MEAN CELL VOLUME 91.7 fl (79.0-92.2); MEAN PLT VOLUME 10.5 fl (9.4-12.4); MONOCYTE # 1.21 x10^3/uL (0.30-0.82); MONOCYTE % 8.5 % (5.3-12.2); PLATELET COUNT 296 x10^3/uL (163-337); RDW 13.4 % (12.2-16.1)
[2025-05-01 09:24] LABS: POTASSIUM 4.1 mmol/L (3.5-5.1)
[2025-05-01 09:27] LABS: BLOOD UREA NITROGEN 27.8 mg/dL (7-18)
[2025-05-01 09:29] LABS: CREATININE 0.9 mg/dL (0.55-1.3)
[2025-05-01] MEDS: predniSONE 20 MG TABLET (UD) PO SCH (10:27)
[2025-05-01] MEDS: LOSARTAN POTASSIUM 25 MG TABLET PO SCH (10:27)
[2025-05-01] MEDS: FLUTICASONE PROP 0.05% 16 GM NASAL SPRAY NS SCH (10:28)
[2025-05-01] MEDS: PANTOPRAZOLE 40 MG TABLET PO SCH (10:28)
[2025-05-01] MEDS: LORATADINE 10 MG TABLET PO SCH (10:28)
[2025-05-01] MEDS: BUDESONIDE/FORMETEROL FUMARATE 160/4.5 mcg INHALER IH SCH (11:18)
[2025-05-01] MEDS: EMPAGLIFLOZIN (JARDIANCE) 10 MG TABLET PO SCH (11:18)
[2025-05-01 18:27] LABS: METHADONE, UR NEGATIVE (NEGATIVE); OPIATES, URI NEGATIVE (NEGATIVE); URINE BARBITURATES NEGATIVE (NEGATIVE); URINE BENZODIAZEPINES NEGATIVE (NEGATIVE)
[2025-05-01 18:29] LABS: PHENCYCLIDINE,URINE NEGATIVE (NEGATIVE)
[2025-05-01 18:32] LABS: COCAINE, UR NEGATIVE (NEGATIVE)
[2025-05-01] MEDS: INSULIN GLARGINE (LANTUS) 100 UNITS/ML UNITS SQ SCH (21:30)
[2025-05-01 22:44] LABS: URINE AMPHETAMINES NEGATIVE (NEGATIVE)
[2025-05-02 09:53] VITALS: BP 126/83; PULSE 114; RESP 20; TEMP 97.9
== END 2025-05-02 11:13 | disposition home or self-care (01) ==
LOC: JER 10:42 → JERBED 14:21 → J5S 15:49
PROVIDERS: ADMIT Internal Medicine; ATTEND Internal Medicine
PROC: 3E0F7GC Introduction of Other Therapeutic Substance into Respiratory Tract, Via Natural or Artificial Opening (ICD-10-PCS; principal; 2025-04-30)
PROC: 3E013VG Introduction of Insulin into Subcutaneous Tissue, Percutaneous Approach (ICD-10-PCS; 2025-04-30)
PROC: 3E0333Z Introduction of Anti-inflammatory into Peripheral Vein, Percutaneous Approach (ICD-10-PCS; 2025-04-30)
PROC: 3E033GC Introduction of Other Therapeutic Substance into Peripheral Vein, Percutaneous Approach (ICD-10-PCS; 2025-04-30)
DX: J44.1 Chronic obstructive pulmonary disease with (acute) exacerbation (principal); R10.9 Unspecified abdominal pain; F17.200 Nicotine dependence, unspecified, uncomplicated; E11.9 Type 2 diabetes mellitus without complications; M62.08 Separation of muscle (nontraumatic), other site
CPT/HCPCS: 0241U-QW; 36415; 71045-TC-FY; 74177-TC; 80048; 80053; 80307; 82803; 82962; 83880; 84484; 85025; 85610; 85730; 86803; 86850; 86900; 86901; 87389; 93005; 93010; 94640; 94761; 96372; 96374; 96375; 97116-GP; 97161-GP; 99291; G0378; Q9967